=== PATIENT | female | born 1950 | race Caucasian/White ===

== ENCOUNTER 2022-09-26 10:52 | Emergency (ER) | payer BC, SELFPAY ==
[2022-09-26 11:05] VITALS: BP 169/62; PULSE 70; RESP 18; TEMP 36.3; O2SAT 100
--- NOTE | 2022-09-26 11:59 | ED.URI ---
HPI - URI/Sore Throat General Chief Complaint: Upper Respiratory Infection Stated Complaint: Throat Irritation,Cough Time Seen by Provider: 09/26/22 11:49 Source: patient Mode of arrival: ambulatory Limitations: no limitations History of Present Illness HPI Narrative: Patient presents today complaining of a 2 day history of throat irritation with postnasal drainage and productive cough. She currently rates her throat pain 4/10 has been taking Tylenol with some relief. Denies any sick contacts, fever, shortness of breath. Home COVID test negative today. Related Data Home Medications Medication Instructions Recorded Confirmed alprazolam 0.25 mg tablet 0.25 mg PO DAILY 09/26/22 09/26/22 clopidogrel 75 mg tablet 75 mg PO DAILY 09/26/22 09/26/22 ergocalciferol (vitamin D2) 1,250 1,250 mcg PO WEEKLY 09/26/22 09/26/22 mcg (50,000 unit) capsule glimepiride 1 mg tablet 1 mg PO DAILY 09/26/22 09/26/22 lisinopril 20 mg tablet 20 mg PO DAILY 09/26/22 09/26/22 nebivolol 2.5 mg tablet 2.5 mg PO DAILY 09/26/22 09/26/22 omeprazole 20 mg capsule,delayed 20 mg PO DAILY 09/26/22 09/26/22 release rosuvastatin 40 mg tablet 40 mg PO DAILY 09/26/22 09/26/22 Allergies Allergy/AdvReac Type Severity Reaction Status Date / Time metformin Allergy Mild Rash Verified 09/26/22 11:29 Tetanus Vaccines and Toxoid Allergy Mild Rash Verified 09/26/22 11:29 Review of Systems Review of Systems: CONSTITUTIONAL: Denies body aches, fever, chills, or sweats. EYES: Denies visual changes, redness, or discharge. ENT: Denies rhinorrhea, congestion, sore throat, or otalgia.+ postnasal drip, throat irritation CARDIOVASCULAR: Denies chest pain, palpitations, or edema. RESPIRATORY: Denies dyspnea.+ cough GASTROINTESTINAL: Denies abdominal pain, nausea, vomiting, or diarrhea. GENITOURINARY: Denies dysuria or hematuria. SKIN: Denies rash, itching, or wounds. MUSCULOSKELETAL: Denies back pain, joint pain, or myalgia. NEUROLOGIC: Denies headache, numbness, tingling, or weakness. PSYCH: Denies depression or anxiety. [facility] Past Medical History Medical History (Updated 09/26/22 @ 12:11 by Neisha Vasquez, [facility], ) Asthma Diabetes Hypertension Pacemaker Comments At time of signature, I have reviewed and agree with nursing past medical, surgical, social and family history unless otherwise noted. Please see nursing chart for further information. There is no relevant family history pertinent to the presenting complaint Exam Narrative: GENERAL: Well-appearing, well-nourished, and in no acute distress. HEAD: Normocephalic, atraumatic. EYES: EOMI. No redness or drainage. Conjunctivae normal. ENT: Mucous membranes pink and moist. Nares clear. No rhinorrhea. TMs normal bilaterally. Throat normal. Uvula midline. NECK: Normal AROM. Supple. No lymphadenopathy. CHEST: No respiratory distress. Clear to auscultation. HEART: Regular rate and rhythm. No murmur appreciated. Normal peripheral pulses. EXTREMITIES: Normal range of motion. No edema. SKIN: Warm, dry, no rash. Capillary refill normal. Normal skin turgor. NEURO: No focal deficits. Alert and oriented x3. Gait steady. PSYCH: Normal affect. No signs of depression or anxiety. Course Course Level of Care: Express Care Visit Vital Signs Vital signs: Vital Signs Temperature 97.4 F L 09/26/22 11:05 Pulse Rate 70 09/26/22 11:05 Respiratory Rate 18 09/26/22 11:05 Blood Pressure 169/62 H 09/26/22 11:05 Pulse Oximetry 100 09/26/22 11:05 Oxygen Delivery Room Air 09/26/22 11:05 Temperature 97.4 F L 09/26/22 11:05 Pulse Rate 70 09/26/22 11:05 Respiratory Rate 18 09/26/22 11:05 Blood Pressure 169/62 H 09/26/22 11:05 Pulse Oximetry 100 09/26/22 11:05 Oxygen Delivery Room Air 09/26/22 11:05 Reviewed. Pt has been instructed to follow up with her PCP regarding her elevated blood pressure today. MDM - URI/Sore Throat Differential Diagnosis Differential diagnosis
== END 2022-09-26 12:19 | disposition home or self-care (01) ==
PROVIDERS: Emergency Provider Nurse Practitioner; PCP Internal Medicine
DX: J06.9 Acute upper respiratory infection, unspecified (principal); J45.909 Unspecified asthma, uncomplicated; E11.9 Type 2 diabetes mellitus without complications; I10 Essential (primary) hypertension; Z95.0 Presence of cardiac pacemaker
CPT/HCPCS: 87081; 87880; 99213; G0463

== ENCOUNTER 2023-06-08 14:11 | Emergency (ER) | payer BC, MEDICARE, SELFPAY ==
[2023-06-08 14:22] VITALS: BP 139/53; PULSE 65; RESP 16; TEMP 36.8; O2SAT 98
--- NOTE | 2023-06-08 14:37 | ED.URI ---
HPI - URI/Sore Throat General Chief Complaint: Upper Respiratory Infection Stated Complaint: Fatigue,Sore Throat Time Seen by Provider: 06/08/23 14:37 Source: patient Mode of arrival: ambulatory Limitations: no limitations History of Present Illness HPI Narrative: 72-year-old female presents with complaint of sore throat, fatigue, body aches, headache for 3 days. Symptoms started after vacationing and [place]. Reports she is coughing up some phlegm but cough is mild. Denies chest pain and shortness of breath. Reports mild nausea but no vomiting. All systems reviewed and negative except as noted above. Related Data Home Medications Medication Instructions Recorded Confirmed albuterol sulfate 90 mcg/actuation 2 inh inhalation PRN PRN Shortness 09/26/22 06/08/23 aerosol inhaler Of Breath Or Wheezing alprazolam 0.25 mg tablet 0.25 mg PO DAILY 09/26/22 06/08/23 clopidogrel 75 mg tablet 75 mg PO DAILY 09/26/22 06/08/23 ergocalciferol (vitamin D2) 1,250 1,250 mcg PO WEEKLY 09/26/22 06/08/23 mcg (50,000 unit) capsule glimepiride 1 mg tablet 1 mg PO DAILY 09/26/22 06/08/23 lisinopril 20 mg tablet 40 mg PO DAILY 09/26/22 06/08/23 nebivolol 2.5 mg tablet 2.5 mg PO DAILY 09/26/22 06/08/23 omeprazole 20 mg capsule,delayed 20 mg PO DAILY 09/26/22 06/08/23 release rosuvastatin 40 mg tablet 40 mg PO DAILY 09/26/22 06/08/23 Allergies Allergy/AdvReac Type Severity Reaction Status Date / Time metformin AdvReac Mild Rash Verified 06/08/23 14:13 Tetanus Vaccines and Toxoid AdvReac Mild Rash Verified 06/08/23 14:13 Review of Systems Review of Systems: CONSTITUTIONAL: Denies fever, chills, or sweats. reports fatigue. EYES: Denies visual changes, redness, or discharge. ENT: Denies rhinorrhea, congestion . Reports sore throat. Denies otalgia. CARDIOVASCULAR: Denies chest pain, palpitations, or edema. RESPIRATORY: Denies cough or dyspnea. GASTROINTESTINAL: Denies abdominal pain, nausea, vomiting, or diarrhea. GENITOURINARY: Denies dysuria or hematuria. SKIN: Denies rash or itching. MUSCULOSKELETAL: Denies back pain, joint pain . Reports myalgia. NEUROLOGIC: Denies headache, numbness, or weakness. PSYCHIATRIC: Denies anxiety or depression. All other systems reviewed are negative, except as documented in HPI. [facility] Past Medical History Medical History (Updated 06/08/23 @ 14:58 by Sabi Wilson NP) Asthma Diabetes Hypertension Pacemaker Comments At time of signature, agree with nursing past medical, surgical, social and family history. There is no relevant family history pertinent to the presenting complaint. Exam Narrative: GENERAL: This is a well-nourished, well-developed patient, in no apparent distress. HEAD: normocephalic, atraumatic. EYES: PERRL. Sclera clear/white. Vision is grossly intact. EARS: External ears normal, auditory canals clear and without drainage, TMs normal without perforation. Hearing grossly intact. NOSE: External nose normal with no obvious nasal discharge, nares without redness, no rhinorrhea. THROAT: Mucous membranes moist, mild erythema to posterior pharynx. No swelling or tonsillar exudates. NECK: Neck supple, non-tender without lymphadenopathy, masses or thyromegaly. CARDIOVASCULAR: Regular rate and rhythm without murmurs, gallops, or rubs. RESPIRATORY: Clear to auscultation. Breath sounds equal bilaterally. No wheezes, rales, or rhonchi. SKIN: warm, Dry, intact with no suspicious lesions or rash, good texture and turgor. NEURO: awake, alert, and oriented to person, place and time. There were no obvious focal neurologic abnormalities. EXTREMITIES: No joint tenderness, effusion, or edema noted. Course Course Level of Care: Express Care Visit Vital Signs Vital signs: Vital Signs Temperature 36.8 C 06/08/23 14:22 Pulse Rate 65 06/08/23 14:22 Respiratory Rate 16 06/08/23 14:22 Blood Pressure 139/53 L 06/08/23 14:22 Pulse Oximetry 98 06/08/23 14:22
== END 2023-06-08 15:00 | disposition home or self-care (01) ==
PROVIDERS: Emergency Provider Nurse Practitioner Family; PCP Internal Medicine
DX: J02.9 Acute pharyngitis, unspecified (principal); Z20.822 Contact with and (suspected) exposure to COVID-19; J45.909 Unspecified asthma, uncomplicated; E11.9 Type 2 diabetes mellitus without complications; I10 Essential (primary) hypertension; Z95.0 Presence of cardiac pacemaker
CPT/HCPCS: 87081; 87426; 87880; 99213; C9803; G0463

== ENCOUNTER 2023-10-06 09:14 | Emergency (ER) | payer BC, MEDICARE, SELFPAY ==
--- NOTE | 2023-10-06 09:24 | ED.URI ---
HPI - URI/Sore Throat General Chief Complaint: Upper Respiratory Infection Stated Complaint: Cough,Congestion,Sore Throat Source: patient, RN notes reviewed and old records reviewed History of Present Illness HPI Narrative: 72 yo F Presents to urgent care with complaints of a sore throat, runny nose, and coughing up phlegm. Pt states this has been going on for the last couple days. Pt states she has been getting intermittent, midsternal chest pains that would radiate straight to her back and up into her throat for the last week and a half. Pt states she thought these pains were her acid reflux. Pt states 2 nights ago, the pain was worse and lasted about 30 minutes. Pt states that pain radiated down her right arm. Pt states ever since then, she hasn't had any chest pain with exception of a twinge yesterday in her chest. Pt reports feeling nauseated last week. Denies any SOB, dizziness, vomiting, fevers, chills, or other symptoms. 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 Related Data Home Medications Medication Instructions Recorded Confirmed albuterol sulfate 90 mcg/actuation 2 inh inhalation PRN PRN Shortness 09/26/22 10/06/23 aerosol inhaler Of Breath Or Wheezing alprazolam 0.25 mg tablet 0.25 mg PO DAILY 09/26/22 10/06/23 clopidogrel 75 mg tablet 75 mg PO DAILY 09/26/22 10/06/23 ergocalciferol (vitamin D2) 1,250 1,250 mcg PO WEEKLY 09/26/22 10/06/23 mcg (50,000 unit) capsule glimepiride 1 mg tablet 1 mg PO DAILY 09/26/22 10/06/23 lisinopril 20 mg tablet 40 mg PO DAILY 09/26/22 10/06/23 nebivolol 2.5 mg tablet 2.5 mg PO DAILY 09/26/22 10/06/23 omeprazole 20 mg capsule,delayed 20 mg PO DAILY 09/26/22 10/06/23 release rosuvastatin 40 mg tablet 40 mg PO DAILY 09/26/22 10/06/23 famotidine 40 mg tablet 40 mg DIRECTED 10/06/23 10/06/23 Allergies Allergy/AdvReac Type Severity Reaction Status Date / Time metformin AdvReac Mild Rash Verified 06/08/23 14:13 Tetanus Vaccines and Toxoid AdvReac Mild Rash Verified 06/08/23 14:13 Review of Systems Review of Systems: Pertinent positives and pertinent negatives per HPI. [facility] Past Medical History Medical History (Updated 10/06/23 @ 10:38 by Mariajose Hill, [facility]) Asthma Diabetes Hypertension Pacemaker Comments At the time of my signature, I reviewed and agree with the nursing past medical, surgical, social, and family history. There is no relevant family history pertinent to the patient complaint. Exam Narrative: GENERAL: This is a well-nourished, well-developed patient, in no apparent distress. HEAD: normocephalic, atraumatic. EYES: Sclera clear/white. Vision is grossly intact. EARS: External ears normal, auditory canals clear and without drainage, TMs normal without perforation. Hearing grossly intact. NOSE: External nose normal with no obvious nasal discharge, nares without redness, no rhinorrhea. THROAT: Mucous membranes moist, posterior pharynx clear. NECK: Neck supple, non-tender without lymphadenopathy, masses or thyromegaly. CARDIOVASCULAR: Regular rate and rhythm without murmurs, gallops, or rubs. RESPIRATORY: Clear to auscultation. Breath sounds equal bilaterally. No wheezes, rales, or rhonchi. GASTROINTESTINAL: Abdomen soft, non-tender, nondistended. Bowel sounds are active. No hepato-splenomegaly, or palpable masses. No guarding. SKIN: warm, intact with no suspicious lesions or rash, good texture and turgor. NEURO: awake, alert, and oriented to person, place and time. There were no obvious focal neurologic abnormalities. EXTREMITIES: No clubbing, cyanosis, or edema. No joint tenderness, effusion, or edema noted. BACK: Nontender without deformity or crepitus. No flank tenderness. Course Course Level of Care: Express Care Visit Vital Signs Vital signs: Vital Signs Temperature 97
[2023-10-06 09:26] VITALS: BP 164/55; PULSE 64; RESP 16; TEMP 36.4; O2SAT 100
[2023-10-06 09:28] VITALS: BP 164/55; PULSE 64; RESP 16; TEMP 36.4; O2SAT 100
--- NOTE | 2023-10-06 10:08 | ECG_ITS ---
Measurements Intervals [place] Rate: 54 P: 34 [place]: 153 QRS: -23 QRSD: 134 T: 220 QT: 532 QTc: 504 Interpretive Statements ELECTRONIC VENTRICULAR PACEMAKER BASELINE ARTIFACT- I, II, III, AVR, AVL, AVF, V1-V6 NO FURTHER INTERPRETATION IS POSSIBLE ATYPICAL ECG NO PREVIOUS ECG AVAILABLE FOR COMPARISON Electronically Signed On 10-06-2023 11:05:46 FITNESS COORDINATOR by Paulo Melendez D.O.
== END 2023-10-06 10:40 | disposition short-term general hospital (02) ==
PROVIDERS: Emergency Provider Nurse Practitioner Family; PCP Internal Medicine
DX: J02.9 Acute pharyngitis, unspecified (principal); E11.9 Type 2 diabetes mellitus without complications; I10 Essential (primary) hypertension; J45.909 Unspecified asthma, uncomplicated; Z79.899 Other long term (current) drug therapy; Z95.0 Presence of cardiac pacemaker
CPT/HCPCS: 87081; 87880; 93005; 99213; G0463

== ENCOUNTER 2024-09-28 09:55 | Outpatient (CLI) | payer BC, MEDICARE, SELFPAY ==
--- NOTE | ~2024-09-28 | CT_ITS ---
CT of the Abdomen: Indication: Renal mass Technique: 2.5 mm axial scans were obtained through the abdomen prior to and following intravenous a dministration of 100 cc of Omnipaque 350. Dose reduction technique was used on this scan by utilizing automated exposure control and iterative reconstruction technique. The dose-length product (DLP) was 311.37 mGy-cm. Findings: Scans through the lung bases are unremarkable. The liver, spleen, pancreas, adrenals and right kidney are within normal limits. Status post cholecys tectomy. 2.5 cm left lower pole renal cyst present, without significant postcontrast enhancement. The re are atherosclerotic calcifications of the aorta. No lymphadenopathy. Visualized bowel loops are unremarkable. No ascites Impression: 2.5 cm benign left lower pole renal cyst. Reviewed, dictated and finalized at [facility]. [employer]AGE [employer] FAMILY THERAPIST Impression: 2.5 cm benign left lower pole renal cyst.
[2024-09-28 10:28] LABS: Estimated Glomerular Filt Rate > 60
== END 2024-09-28 09:56 | disposition home or self-care (01) ==
PROVIDERS: PCP Internal Medicine; Visit Provider Urology
DX: N28.1 Cyst of kidney, acquired (principal); N28.89 Other specified disorders of kidney and ureter
CPT/HCPCS: 74170; Q9967

== ENCOUNTER 2025-04-19 07:35 | Outpatient (CLI) | payer BC, MEDICARE, SELFPAY ==
--- NOTE | ~2025-04-19 | NM_ITS ---
EXAM: NM gastric emptying study DATE: 04/19/2025 13:09 CDT INDICATION: Early satiety TECHNIQUE: A gastric emptying study was performed using the methodology of Jessica GUADALUPE, et al. J Nucl Med 2007; 48:568-572. The patient was given a meal consisting of 2 scrambled eggs labeled with mCi T c-99m sulfur colloid, 2 slices of toast, two packages of jam, and approximately 120 mL of water. Simu ltaneous anterior and posterior 1-min images of the abdomen were obtained with the patient supine at multiple time points over a total period of 4 hours. The geometric mean of anterior and posterior vie ws was determined, and the percentage retention was calculated for each time point. COMPARISON: None. FINDINGS: Gastric retention of the radiotracer-labeled meal was 46%, 13%, and 3% at the 1-hour, 2-ho ur, and 4-hour time points, respectively. With this technique, apparent rapid gastric emptying is sug gested by <30% gastric retention at 1 hour. Delayed gastric emptying is defined by gastric retention of >90% at 1 hour, >60% retention at 2 hours, or >10% retention at 4 hours. IMPRESSION: 1. Normal gastric emptying. Reviewed, dictated and finalized at location A. IMPRESSION: 1. Normal gastric emptying.
--- OUTSIDE RECORDS SUMMARY | 2025-04-19 07:38 | XMS_ITS | Data Portability ---
Author Organization [facility] Address [address] [place] [address] Care Team Providers Care Data Officer Name Role Phone TOBY VELA Primary Care Provider Assessment Encounter Date Assessment Date Assessment LastModified by Organization Details LastModified Time 07/13/2024 07/13/2024 blood work urinalysis medicines reviewed they be continued she did not tolerate S allergy to a neighbor's she will me in 4 months we will get physical therapy for left-sided sciatica [email or web address] Not available 07/13/2024 21:59:55 08/15/2024 08/15/2024 obtain urine reflex to culture Not available 09/10/2024 21:02:43 09/21/2024 09/21/2024 continue current therapy overall medical problems appear to be stable medicines to treat those problems have been discussed goals of therapies discussed she will see me back in 4 months she will have blood work a week before she comes in [email or web address] Not available 09/21/2024 22:33:48 11/09/2024 11/09/2024 hypertension we will change her lisinopril to 40 mg in the morning and add 20 mg at night she continues to take her pressures at home. Diabetic foot exam with Podiatry other blood work has been reviewed all questions have been answered targets for LDL blood pressure and A1c in the face of diabetes have been discussed. We are trying to obtain the mammogram reports from [facility] Colog[facility] report she needs to get in to see the eye doctor we will get that set up see me in 4 months Not available 11/12/2024 16:18:26 03/15/2025 03/15/2025 Second opinion closer to home does not want to go to [place] just yet CBC CMP lipid T3-T4 TSH cortisol level for her fatigue weight loss and nonspecific complaints follow up with me in 6 weeks [email or web address] Not available 03/25/2025 23:19:23 Plan of Treatment Reminders Order Date Submit Date Provider Last Modified By Organization Details Last Modified Time Details Appointments ANY 15 2024 03:00P M Toby Vela MD Not available Not available Not available Lab unlisted lab - T4, free 2024 025 [facility], [address], [place], [address], 03/16/2025 09:34:59 T3, free, serum or plasma 2024 025 [facility], [address], [place], [address], 03/16/2025 09:35:05 TSH, ultra-sen sitive, serum 2024 025 [facility], [address], [place], [address], 03/16/2025 09:35:03 lipid panel, serum 2024 025 [facility], [address], [place], [address], 03/16/2025 09:34:57 CMP, serum or plasma 2024 025 [facility], [address], [place], [address], 03/16/2025 09:35:00 CBC w/ auto diff 2024 025 [facility], [address], [place], [address], 03/16/2025 09:35:04 cortisol, serum or plasma 2024 025 [facility], [address], [address], [place], [address], 03/16/2025 09:35:01 noninvasi ve colorecta l cancer DNA + occult blood screening , QL, stool 2023 024 [facility] Only), [address], [address], [place], [address], 11/24/2024 07:47:16 HbA1c (hemoglob in A1c), blood 2023 [facility], [facility] [address], [address], [place], [address], 10/12/2024 08:28:39 lipid panel, serum 2023 024 [facility], [facility] [address], [address], [place], [address], 10/12/2024 08:28:36 CMP, serum or plasma 2023 024 [facility], [address], [address], [place], [address], 10/12/2024 08:28:38 CBC w/ auto diff 2023 024 [facility], [address], [address], [place], [address], 10/12/2024 08:28:40 culture, urine 2023 024 [facility], [address], [address], [place], [address], 08/17/2024 06:20:46 urinalysi s complete, reflex culture 2023 024 [facility], [address], [address], [place], [address], 08/16/2024 07:15:10 HbA1c (hemoglob in A1c), blood 2023 024 [facility], [address], [address], [place], [address], 07/14/2024 07:15:31 CBC w/ auto diff 2023 024 [facility], [address], [address], [place], [address], 07/14/2024 07:15:32 CMP, serum or plasma 2023 024 [facility], [address], [address], [place], [address], 07/14/2024 07:15:30 lipid panel, serum 2023 024 [facility], [address], [address], [place], [place], [address], 07/14/2024 07:15:29 urinalysi s, microscop ic 2023 024 [facility], [address], [address], [place], [address], 07/14/2024 07:15:31 albumin/c reatinine , mass ratio, urine 2023 024 [facility], [address], [address], [place], [address], 07/14/2024 07:15:29 Referral podiatris t referral 2023 024 [facility], [address], [address], [place], [address], 12/19/2024 15:47:58 physical therapist referral 2023 024 [facility], [address], [place], [address], 07/19/2024 17:46:23 Procedures None recorded. Surgeries None recorded. Imaging None recorded. Medication Orders lisinopri l 40 mg tablet 2023 024 [id number], [address], [place], [place], [id number], 11/09/2024 15:33:02 Patient TargetsNo targets recorded. Patient Instructions Encounter Date Encounter Id Patient Instructions Last Modified By Organization Details Last Modified Time 03/15/2025 [id number] A healthy lifestyle: care instructions Not available 03/15/2025 21:34:17 Reason for Referral Physical Therapist Referral for Left side sciatica Referring Physician: Toby Vela, Internal Medicine, Encounter Date: 07/13/2024 Recreation Specialist Referral for Type 2 diabetes mellitus without complication Referring Physician: Toby Vela, Internal Medicine, Encounter Date: 11/09/2024 Results Created Date Observation Date Name Description Value Unit Range Abnormal Flag Note LastModifiedBy Organization Detail LastModifiedTime 07/13/2007/14/2024 ALBUM IN/CR EATIN INE RATIO ,URIN E creatinine, urine 109.7 mg/dL notest ab. Not Available [facility] ([facility]) [address], [place], [address], 07/14/2024 07:15:29 07/13/2007/14/2024 ALBUM IN/CR EATIN INE RATIO ,URIN E albumin, urine 4.5 ug/mL notest ab. Not Available [facility] ([facility]) [address], [place], [address], 07/14/2024 07:15:29 07/13/20 24 07/14/2024 ALBUM IN/CR EATIN INE RATIO ,URIN E alb/creat ratio 4 mg/g_ creat 0-29 Jaye l: 0 - 29 Moder ately incre ased: 30 - 300 Sever abbi incre ased: >300 Not Available [facility] ([facility]) [address] [place], [address], 07/14/2024 07:15:29 07/13/20 24 07/14/2024 LIPID PANEL cholesterol, total 175 mg/dL 100-19 9 Not Available [facility] ([facility]) [address] [place], [address], 07/14/2024 07:15:29 07/13/20 24 07/14/2024 LIPID PANEL triglyceride s 140 mg/dL 0-149 Not Available [facility] ([facility]) [address] [place], [address], 07/14/2024 07:15:29 07/13/20 24 07/14/2024 LIPID PANEL HDL cholesterol 65 mg/dL >39 Not Available [facility] ([facility]) [address] [place], [address], 07/14/2024 07:15:29 07/13/20 24 07/14/2024 LIPID PANEL VLDL cholesterol laquita 24 mg/dL 5-40 Not Available [facility] ([facility]) [address] [place], [address], 07/14/2024 07:15:29 07/13/20 24 07/14/2024 LIPID PANEL LDL chol calc ([facility] 86 mg/dL 0-99 Not Available [facility] ([facility]) [address] [place], [address], 07/14/2024 07:15:29 07/13/20 24 07/14/2024 COMP. METAB OLIC PANEL (14) glucose 136 mg/dL 70-99 above high normal Not Available [facility] ([facility]) [address], [place], [address], 07/14/2024 07:15:30 07/13/20 24 07/14/2024 COMP. METAB OLIC PANEL (14) BUN 11 mg/dL 8-27 Not Available [facility] ([facility]) [address] [place], [address], 07/14/2024 07:15:30 07/13/20 24 07/14/2024 COMP. METAB OLIC PANEL (14) creatinine 0.86 mg/dL 0.57-1 .00 Not Available [facility] ([facility]) [address] [place], [address], 07/14/2024 07:15:30 07/13/20 24 07/14/2024 COMP. METAB OLIC PANEL (14) eGFR 71 mL/mi n/1.7 3 >59 Not Available [facility] ([facility]) [address], [place], [address], 07/14/2024 07:15:30 07/13/20 24 07/14/2024 COMP. METAB OLIC PANEL (14) BUN/creatini ne ratio 13 12-28 Not Available [facility] ([facility]) [address] [place], [address], 07/14/2024 07:15:30 07/13/20 24 07/14/2024 COMP. METAB OLIC PANEL (14) sodium 145 mmol/ L 134-14 4 above high normal Not Available [facility] ([facility]) [address] [place], [address], 07/14/2024 07:15:30 07/13/20 24 07/14/2024 COMP. METAB OLIC PANEL (14) potassium 5.3 mmol/ L 3.5-5. 2 above high normal Not Available [facility] ([facility]) [address] [place], [address], 07/14/2024 07:15:30 07/13/20 24 07/14/2024 COMP. METAB OLIC PANEL (14) chloride 102 mmol/ L 96-106 Not Available [facility] ([facility]) [address], [place], [address], 07/14/2024 07:15:30 07/13/20 24 07/14/2024 COMP. METAB OLIC PANEL (14) carbon dioxide, total 26 mmol/ L 20-29 Not Available [facility] ([facility]) [address], [place], [address], 07/14/2024 07:15:30 07/13/20 24 07/14/2024 COMP. METAB OLIC PANEL (14) calcium 10.1 mg/dL 8.7-10 .3 Not Available [facility] ([facility]) [address], [place], [address], 07/14/2024 07:15:30 07/13/20 24 07/14/2024 COMP. METAB OLIC PANEL (14) protein, total 7.0 g/dL 6.0-8. 5 Not Available [facility] ([facility]) [address], [place], [address], 07/14/2024 07:15:30 07/13/20 24 07/14/2024 COMP. METAB OLIC PANEL (14) albumin 4.7 g/dL 3.8-4. 8 Not Available [facility] ([facility]) [address] [facility] [place], [address], 07/14/2024 07:15:30 07/13/20 24 07/14/2024 COMP. METAB OLIC PANEL (14) globulin, total 2.3 g/dL 1.5-4. 5 Not Available [facility] ([facility]) [address] [facility] [place], [address], 07/14/2024 07:15:30 07/13/20 24 07/14/2024 COMP. METAB OLIC PANEL (14) bilirubin, total 0.3 mg/dL 0.0-1. 2 Not Available [facility] ([facility]) [address], [place], [address], 07/14/2024 07:15:30 07/13/20 24 07/14/2024 COMP. METAB OLIC PANEL (14) alkaline phosphatase 64 IU/L 44-121 Not Available [facility] ([facility]) [address], [place], [address], 07/14/2024 07:15:30 07/13/20 24 07/14/2024 COMP. METAB OLIC PANEL (14) AST (SGOT) 15 IU/L 0-40 Not Available [facility] ([facility]) [address], [place], [address], 07/14/2024 07:15:30 07/13/20 24 07/14/2024 COMP. METAB OLIC PANEL (14) ALT (SGPT) 10 IU/L 0-32 Not Available [facility] ([facility]) [address], [place], [address], 07/14/2024 07:15:30 07/13/20 24 07/14/2024 MICRO SCOPI C EXAMI NATIO N WBC NONE SEEN /hpf 0-5 Not Available [facility] ([facility]) [address], [place], [address], 07/14/2024 07:15:31 07/13/20 24 07/14/2024 MICRO SCOPI C EXAMI NATIO N RBC NONE SEEN /hpf 0-2 Not Available [facility] ([facility]) [address], [place], [address], 07/14/2024 07:15:31 07/13/20 24 07/14/2024 MICRO SCOPI C EXAMI NATIO N epithelial cells (non renal) 0-10 /hpf 0-10 Not Available [facility] ([facility]) [address], [place], [address], 07/14/2024 07:15:31 07/13/20 24 07/14/2024 MICRO SCOPI C EXAMI NATIO N casts NONE SEEN /lpf nonese en Not Available [facility] ([facility]) [address], [place], [address], 07/14/2024 07:15:31 07/13/20 24 07/14/2024 MICRO SCOPI C EXAMI NATIO N bacteria NONE SEEN nonese en/few Not Available [facility] ([facility]) [address], [place], [address], 07/14/2024 07:15:31 07/13/20 24 07/14/2024 HEMOG LOBIN A1C hemoglobin A1C 6.9 % 4.8-5. 6 above high normal Predi abete s: 5.7 - 6.4 Diabe daryl: >6.4 Glyce sara contr ol for adult s with diabe daryl: <7.0 Not Available [facility] ([facility]) [address], [place], [address], 07/14/2024 07:15:31 07/13/20 24 07/13/2024 CBC WITH DIFFE RENTI AL/PL ATELE T WBC 5.5 x10e3 /uL 3.4-10 .8 Not Available [facility] ([facility]) [address], [place], [address], 07/14/2024 07:15:32 07/13/20 24 07/13/2024 CBC WITH DIFFE RENTI AL/PL ATELE T RBC 4.21 x10e6 /uL 3.77-5 .28 Not Available [facility] ([facility]) [address], [place], [address], 07/14/2024 07:15:32 07/13/20 24 07/13/2024 CBC WITH DIFFE RENTI AL/PL ATELE T hemoglobin 12.6 g/dL 11.1-1 5.9 Not Available [facility] ([facility]) [address], [place], [address], 07/14/2024 07:15:32 07/13/20 24 07/13/2024 CBC WITH DIFFE RENTI AL/PL ATELE T hematocrit 39.3 % 34.0-4 6.6 Not Available [facility] ([facility]) [address], [place], [address], 07/14/2024 07:15:32 07/13/20 24 07/13/2024 CBC WITH DIFFE RENTI AL/PL ATELE T MCV 93 fL 79-97 Not Available [facility] ([facility]) [address], [place], [address], 07/14/2024 07:15:32 07/13/20 24 07/13/2024 CBC WITH DIFFE RENTI AL/PL ATELE T MCH 29.9 pg 26.6-3 3.0 Not Available [facility] ([facility]) [address], [place], [address], 07/14/2024 07:15:32 07/13/20 24 07/13/2024 CBC WITH DIFFE RENTI AL/PL ATELE T MCHC 32.1 g/dL 31.5-3 5.7 Not Available [facility] ([facility]) [address], [place], [address], 07/14/2024 07:15:32 07/13/20 24 07/13/2024 CBC WITH DIFFE RENTI AL/PL ATELE T RDW 12.3 % 11.7-1 5.4 Not Available [facility] ([facility]) [address] [place], [address], 07/14/2024 07:15:32 07/13/20 24 07/13/2024 CBC WITH DIFFE RENTI AL/PL ATELE T platelets 250 x10e3 /uL 150-45 0 Not Available [facility] ([facility]) [address], [place], [address], 07/14/2024 07:15:32 07/13/20 24 07/13/2024 CBC WITH DIFFE RENTI AL/PL ATELE T neutrophils 55 % notest ab. Not Available [facility] ([facility]) [address], [place], [address], 07/14/2024 07:15:32 07/13/20 24 07/13/2024 CBC WITH DIFFE RENTI AL/PL ATELE T lymphs 35 % notest ab. Not Available [facility] ([facility]) [address], [place], [address], 07/14/2024 07:15:32 07/13/20 24 07/13/2024 CBC WITH DIFFE RENTI AL/PL ATELE T monocytes 7 % notest ab. Not Available [facility] ([facility]) [address], [place], [address], 07/14/2024 07:15:32 07/13/20 24 07/13/2024 CBC WITH DIFFE RENTI AL/PL ATELE T eos 2 % notest ab. Not Available [facility] ([facility]) [address], [place], [address], 07/14/2024 07:15:32 07/13/20 24 07/13/2024 CBC WITH DIFFE RENTI AL/PL ATELE T basos 1 % notest ab. Not Available [facility] ([facility]) [address], [place], [address], 07/14/2024 07:15:32 07/13/20 24 07/13/2024 CBC WITH DIFFE RENTI AL/PL ATELE T neutrophils (absolute) 3.1 x10e3 /uL 1.4-7. 0 Not Available [facility] ([facility]) [address], [place], [address], 07/14/2024 07:15:32 07/13/20 24 07/13/2024 CBC WITH DIFFE RENTI AL/PL ATELE T lymphs (absolute) 1.9 x10e3 /uL 0.7-3. 1 Not Available [facility] ([facility]) [address], [place], [address], 07/14/2024 07:15:32 07/13/20 24 07/13/2024 CBC WITH DIFFE RENTI AL/PL ATELE T monocytes(ab solute) 0.4 x10e3 /uL 0.1-0. 9 Not Available [facility] ([facility]) [address], [place], [address], 07/14/2024 07:15:32 07/13/20 24 07/13/2024 CBC WITH DIFFE RENTI AL/PL ATELE T eos (absolute) 0.1 x10e3 /uL 0.0-0. 4 Not Available [facility] ([facility]) [address], [place], [address], 07/14/2024 07:15:32 07/13/20 24 07/13/2024 CBC WITH DIFFE RENTI AL/PL ATELE T baso (absolute) 0.0 x10e3 /uL 0.0-0. 2 Not Available [facility] ([facility]) [address], [place], [address], 07/14/2024 07:15:32 07/13/20 24 07/13/2024 CBC WITH DIFFE RENTI AL/PL ATELE T immature granulocytes 0 % notest ab. Not Available [facility] ([facility]) [address], [place], [address], 07/14/2024 07:15:32 07/13/20 24 07/13/2024 CBC WITH DIFFE RENTI AL/PL ATELE T immature grans (abs) 0.0 x10e3 /uL 0.0-0. 1 Not Available [facility] ([facility]) [address], [place], [address], 07/14/2024 07:15:32 08/15/2008/16/2024 MICRO SCOPI C EXAMI NATIO N WBC None seen /hpf 0-5 Not Available [facility] ([facility]) [address], [place], [address], 08/16/2024 07:15:10 08/15/2008/16/2024 MICRO SCOPI C EXAMI NATIO N RBC 0-2 /hpf 0-2 Not Available [facility] ([facility]) [address], [place], [address], 08/16/2024 07:15:10 08/15/2008/16/2024 MICRO SCOPI C EXAMI NATIO N epithelial cells (non renal) 0-10 /hpf 0-10 Not Available [facility] ([facility]) [address], [place], [address], 08/16/2024 07:15:10 08/15/2008/16/2024 MICRO SCOPI C EXAMI NATIO N casts None seen /lpf nonese en Not Available [facility] ([facility]) [address], [place], [address], 08/16/2024 07:15:10 08/15/2008/16/2024 MICRO SCOPI C EXAMI NATIO N bacteria None seen nonese en/few Not Available [facility] ([facility]) [address], [place], [address], 08/16/2024 07:15:10 08/15/2008/16/2024 UA/M W/RFL X CULTU RE, ROUTI NE specific gravity 1.009 1.005- 1.030 Not Available [facility] ([facility]) [address], [place], [address], 08/16/2024 07:15:10 08/15/20 24 08/16/2024 UA/M W/RFL X CULTU RE, ROUTI NE pH 6.0 5.0-7. 5 Not Available [facility] ([facility]) [address], [place], [address], 08/16/2024 07:15:10 08/15/2008/16/2024 UA/M W/RFL X CULTU RE, ROUTI NE urine-color YELLOW yellow Not Available [facility] ([facility]) [address], [place], [address], 08/16/2024 07:15:10 08/15/2008/16/2024 UA/M W/RFL X CULTU RE, ROUTI NE appearance CLEAR clear Not Available [facility] ([facility]) [address], [place], [address], 08/16/2024 07:15:10 08/15/20 24 08/16/2024 UA/M W/RFL X CULTU RE, ROUTI NE WBC esterase NEGATI VE negati ve Not Available [facility] ([facility]) [address], [place], [address], 08/16/2024 07:15:10 08/15/20 24 08/16/2024 UA/M W/RFL X CULTU RE, ROUTI NE protein NEGATI VE negati ve/tra ce Not Available [facility] ([facility]) [address] [place], [address], 08/16/2024 07:15:10 08/15/20 24 08/16/2024 UA/M W/RFL X CULTU RE, ROUTI NE glucose NEGATI VE negati ve Not Available [facility] ([facility]) [address] [place], [address], 08/16/2024 07:15:10 08/15/20 24 08/16/2024 UA/M W/RFL X CULTU RE, ROUTI NE ketones NEGATI VE negati ve Not Available [facility] ([facility]) [address], [place], [address], 08/16/2024 07:15:10 08/15/20 24 08/16/2024 UA/M W/RFL X CULTU RE, ROUTI NE occult blood NEGATI VE negati ve Not Available [facility] ([facility]) [address], [place], [address], 08/16/2024 07:15:10 08/15/20 24 08/16/2024 UA/M W/RFL X CULTU RE, ROUTI NE bilirubin NEGATI VE negati ve Not Available [facility] ([facility]) [address] [facility], [place], [address], 08/16/2024 07:15:10 08/15/20 24 08/16/2024 UA/M W/RFL X CULTU RE, ROUTI NE urobilinogen ,semi-qn 0.2 mg/dL 0.2-1. 0 Not Available [facility] ([facility]) [address], [place], [address], 08/16/2024 07:15:10 08/15/20 24 08/16/2024 UA/M W/RFL X CULTU RE, ROUTI NE nitrite, urine NEGATI VE negati ve Not Available [facility] ([facility]) [address] [place], [address], 08/16/2024 07:15:10 08/15/20 24 08/16/2024 UA/M W/RFL X CULTU RE, ROUTI NE microscopic examination COMMEN T Micro scopi c follo ws if indic ated. Not Available [facility] ([facility]) [address] [facility], [place], [address], 08/16/2024 07:15:10 08/15/20 24 08/16/2024 UA/M W/RFL X CULTU RE, ROUTI NE microscopic examination SEE BELOW: Micro scopi c was indic ated and was perfo rmed. Not Available [facility] ([facility]) [address] [place], [address], 08/16/2024 07:15:10 08/15/20 24 08/16/2024 UA/M W/RFL X CULTU RE, ROUTI NE urinalysis reflex COMMEN T This speci men will not refle x to a Urine Cultu re. Not Available [facility] ([facility]) [address] [place], [address], 08/16/2024 07:15:10 08/15/20 24 08/17/2024 URINE CULTU RE, ROUTI NE urine culture, routine FINAL REPORT Not Available [facility] ([facility]) [address] [place], [address], 08/17/2024 06:20:46 08/15/20 24 08/17/2024 URINE CULTU RE, ROUTI NE result 1 COMMEN T Mixed uroge nital blayne Less than 10,00 0 colon ies/m L Not Available [facility] ([facility]) [address] [place], [address], 08/17/2024 06:20:46 10/11/20 24 10/12/2024 LIPID PANEL cholesterol, total 143 mg/dL 100-19 9 Not Available [facility] ([facility]) [address] [place], [address], 10/12/2024 08:28:36 10/11/20 24 10/12/2024 LIPID PANEL triglyceride s 99 mg/dL 0-149 Not Available [facility] ([facility]) [address] [place], [address], 10/12/2024 08:28:36 10/11/20 24 10/12/2024 LIPID PANEL HDL cholesterol 62 mg/dL >39 Not Available [facility] ([facility]) [address], [place], [address], 10/12/2024 08:28:36 10/11/20 24 10/12/2024 LIPID PANEL VLDL cholesterol laquita 18 mg/dL 5-40 Not Available [facility] ([facility]) [address] [place], [address], 10/12/2024 08:28:36 10/11/20 24 10/12/2024 LIPID PANEL LDL chol calc ([facility]) 63 mg/dL 0-99 Not Available [facility] ([facility]) [address] [place], [address], 10/12/2024 08:28:36 10/11/20 24 10/12/2024 COMP. METAB OLIC PANEL (14) glucose 117 mg/dL 70-99 above high normal Not Available [facility] ([facility]) [address] [place], [address], 10/12/2024 08:28:38 10/11/20 24 10/12/2024 COMP. METAB OLIC PANEL (14) BUN 18 mg/dL 8-27 Not Available [facility] ([facility]) [address] [place], [address], 10/12/2024 08:28:38 10/11/20 24 10/12/2024 COMP. METAB OLIC PANEL (14) creatinine 0.86 mg/dL 0.57-1 .00 Not Available [facility] ([facility]) [address] [place], [address], 10/12/2024 08:28:38 10/11/20 24 10/12/2024 COMP. METAB OLIC PANEL (14) eGFR 71 mL/mi n/1.7 3 >59 Not Available [facility] ([facility]) [address] [facility], [place], [address], 10/12/2024 08:28:38 10/11/20 24 10/12/2024 COMP. METAB OLIC PANEL (14) BUN/creatini ne ratio 21 12-28 Not Available [facility] ([facility]) [address] [facility], [place], [address], 10/12/2024 08:28:38 10/11/20 24 10/12/2024 COMP. METAB OLIC PANEL (14) sodium 141 mmol/ L 134-14 4 Not Available [facility] ([facility]) [address] [facility], [place], [address], 10/12/2024 08:28:38 10/11/20 24 10/12/2024 COMP. METAB OLIC PANEL (14) potassium 5.1 mmol/ L 3.5-5. 2 Not Available [facility] ([facility]) [address] [facility], [place], [address], 10/12/2024 08:28:38 10/11/20 24 10/12/2024 COMP. METAB OLIC PANEL (14) chloride 104 mmol/ L 96-106 Not Available [facility] ([facility]) [address] [facility], [place], [address], 10/12/2024 08:28:38 10/11/20 24 10/12/2024 COMP. METAB OLIC PANEL (14) carbon dioxide, total 27 mmol/ L 20-29 Not Available [facility] ([facility]) [address] [facility], [place], [address], 10/12/2024 08:28:38 10/11/20 24 10/12/2024 COMP. METAB OLIC PANEL (14) calcium 9.4 mg/dL 8.7-10 .3 Not Available [facility] ([facility]) [address] [facility], [place], [address], 10/12/2024 08:28:38 10/11/20 24 10/12/2024 COMP. METAB OLIC PANEL (14) protein, total 6.6 g/dL 6.0-8. 5 Not Available [facility] ([facility]) [address] [facility], [place], [address], 10/12/2024 08:28:38 10/11/20 24 10/12/2024 COMP. METAB OLIC PANEL (14) albumin 4.6 g/dL 3.8-4. 8 Not Available [facility] ([facility]) [address] [facility], [place], [address], 10/12/2024 08:28:38 10/11/20 24 10/12/2024 COMP. METAB OLIC PANEL (14) globulin, total 2.0 g/dL 1.5-4. 5 Not Available [facility] ([facility]) [address] [facility], [place], [address], 10/12/2024 08:28:38 10/11/20 24 10/12/2024 COMP. METAB OLIC PANEL (14) bilirubin, total 0.4 mg/dL 0.0-1. 2 Not Available [facility] ([facility]) [address] [facility], [place], [address], 10/12/2024 08:28:38 10/11/20 24 10/12/2024 COMP. METAB OLIC PANEL (14) alkaline phosphatase 67 IU/L 44-121 Not Available [facility] ([facility]) [address] [facility], [place], [address], 10/12/2024 08:28:38 10/11/20 24 10/12/2024 COMP. METAB OLIC PANEL (14) AST (SGOT) 15 IU/L 0-40 Not Available [facility] ([facility]) [address] [facility], [place], [address], 10/12/2024 08:28:38 10/11/20 10/12/2024 COMP. METAB OLIC PANEL (14) ALT (SGPT) 9 IU/L 0-32 Not Available [facility] ([facility]) [address] [place], [address], 10/12/2024 08:28:38 10/11/20 24 10/12/2024 HEMOG LOBIN A1C hemoglobin A1C 6.7 % 4.8-5. 6 above high normal Predi abete s: 5.7 - 6.4 Diabe daryl: >6.4 Glyce sara contr ol for adult s with diabe daryl: <7.0 Not Available [facility] ([facility]) [address] [facility], [place], [address], 10/12/2024 08:28:39 10/11/20 24 10/12/2024 CBC WITH DIFFE RENTI AL/PL ATELE T WBC 6.9 x10e3 /uL 3.4-10 .8 Eff ectiv e Decem zulma 2023 profi jasbir 33000 5 WBC will be made* * non-o rdera ble as a stand -christelle e order code. Not Available [facility] ([facility]) [address] [facility], [place], [address], 10/12/2024 08:28:40 10/11/20 24 10/12/2024 CBC WITH DIFFE RENTI AL/PL ATELE T RBC 3.97 x10e6 /uL 3.77-5 .28 Not Available [facility] ([facility]) [address] [place], [address], 10/12/2024 08:28:40 10/11/20 24 10/12/2024 CBC WITH DIFFE RENTI AL/PL ATELE T hemoglobin 11.9 g/dL 11.1-1 5.9 Not Available [facility] ([facility]) [address] [place], [address], 10/12/2024 08:28:40 10/11/20 24 10/12/2024 CBC WITH DIFFE RENTI AL/PL ATELE T hematocrit 36.6 % 34.0-4 6.6 Not Available [facility] ([facility]) [address] [facility], [place], [address], 10/12/2024 08:28:40 10/11/20 24 10/12/2024 CBC WITH DIFFE RENTI AL/PL ATELE T MCV 92 fL 79-97 Not Available [facility] ([facility]) [address] [facility], [place], [address], 10/12/2024 08:28:40 10/11/20 24 10/12/2024 CBC WITH DIFFE RENTI AL/PL ATELE T MCH 30.0 pg 26.6-3 3.0 Not Available [facility] ([facility]) [address] [facility], [place], [address], 10/12/2024 08:28:40 10/11/20 24 10/12/2024 CBC WITH DIFFE RENTI AL/PL ATELE T MCHC 32.5 g/dL 31.5-3 5.7 Not Available [facility] ([facility]) [address] [facility], [place], [address], 10/12/2024 08:28:40 10/11/20 24 10/12/2024 CBC WITH DIFFE RENTI AL/PL ATELE T RDW 12.3 % 11.7-1 5.4 Not Available [facility] ([facility]) [address] [place], [address], 10/12/2024 08:28:40 10/11/20 24 10/12/2024 CBC WITH DIFFE RENTI AL/PL ATELE T platelets 285 x10e3 /uL 150-45 0 Not Available [facility] ([facility]) [address] [place], [address], 10/12/2024 08:28:40 10/11/20 24 10/12/2024 CBC WITH DIFFE RENTI AL/PL ATELE T neutrophils 58 % notest ab. Not Available [facility] ([facility]) [address] [facility], [place], [address], 10/12/2024 08:28:40 10/11/20 24 10/12/2024 CBC WITH DIFFE RENTI AL/PL ATELE T lymphs 33 % notest ab. Not Available [facility] ([facility]) [address] [facility], [place], [address], 10/12/2024 08:28:40 10/11/20 24 10/12/2024 CBC WITH DIFFE RENTI AL/PL ATELE T monocytes 7 % notest ab. Not Available [facility] ([facility]) [address] [facility], [place], [address], 10/12/2024 08:28:40 10/11/20 24 10/12/2024 CBC WITH DIFFE RENTI AL/PL ATELE T eos 1 % notest ab. Not Available [facility] ([facility]) [address] [facility], [place], [address], 10/12/2024 08:28:40 10/11/20 24 10/12/2024 CBC WITH DIFFE RENTI AL/PL ATELE T basos 1 % notest ab. Not Available [facility] ([facility]) [address] [facility], [place], [address], 10/12/2024 08:28:40 10/11/20 24 10/12/2024 CBC WITH DIFFE RENTI AL/PL ATELE T neutrophils (absolute) 4.0 x10e3 /uL 1.4-7. 0 Not Available [facility] ([facility]) [address] [facility], [place], [address], 10/12/2024 08:28:40 10/11/20 24 10/12/2024 CBC WITH DIFFE RENTI AL/PL ATELE T lymphs (absolute) 2.3 x10e3 /uL 0.7-3. 1 Not Available [facility] ([facility]) [address] [facility], [place], [address], 10/12/2024 08:28:40 10/11/20 24 10/12/2024 CBC WITH DIFFE RENTI AL/PL ATELE T monocytes(ab solute) 0.5 x10e3 /uL 0.1-0. 9 Not Available [facility] ([facility]) [address] [facility], [place], [address], 10/12/2024 08:28:40 10/11/20 24 10/12/2024 CBC WITH DIFFE RENTI AL/PL ATELE T eos (absolute) 0.1 x10e3 /uL 0.0-0. 4 Not Available [facility] ([facility]) [address] [facility], [place], [address], 10/12/2024 08:28:40 10/11/20 24 10/12/2024 CBC WITH DIFFE RENTI AL/PL ATELE T baso (absolute) 0.1 x10e3 /uL 0.0-0. 2 Not Available [facility] ([facility]) [address] [facility], [place], [address], 10/12/2024 08:28:40 10/11/20 24 10/12/2024 CBC WITH DIFFE RENTI AL/PL ATELE T immature granulocytes 0 % notest ab. Not Available [facility] ([facility]) [address] [facility], [place], [address], 10/12/2024 08:28:40 10/11/20 24 10/12/2024 CBC WITH DIFFE RENTI AL/PL ATELE T immature grans (abs) 0.0 x10e3 /uL 0.0-0. 1 Not Available [facility] ([facility]) [address] [facility], [place], [address], 10/12/2024 08:28:40 12/27/11/17/2024 COLOG UARD cologuard result reportable NEGATI VE negati ve normal NEGAT GREGORY TEST RESUL T. A negat gregory Colog uard resul t indic ates a low likel ihood that a color ectal cance r (CRC) or advan kenyatta adeno ma (alina omato us polyp s with more advan kenyatta pre-m align ant featu res) is prese nt. The [facility] e that a perso n with a negat gregory Colog uard test has a color ectal cance r is less than 1 in 1500 (nega tive predi ctive value >99.9 %) or has an advan kenyatta adeno ma is less than 5.3% (nega tive predi ctive value 94.7% ). These data are based on a prosp ectiv e cross -sect ional study of 00 0 indiv idual s at [place] risk for color ectal cance r who were scree james with both Colog uard and colon oscop y. (Jon Montelongo et al, N Engl J Med 2014; 370(1 4):12 86-12 97) The jaye l value (refe rence range ) for this assay is negat gregory. COLOG UARD RE-SC REENI NG RECOM MENDA TION: Perio dic color ectal cance r scree rosey is an impor tant part of preve ntive healt hcare for asymp tomat ic indiv [place]ual s at [place] risk for color ectal cance r. Follo wing a negat gregory Colog uard resul t, the Ameri can Cance r Socie ty and U.S. Multi -Soci ety Task Force scree rosey guide lines recom mend a Colog uard re-sc reeni ng inter yoli of 3 years . Refer ences : Ameri can Cance r Socie ty Guide line for Color ectal Cance r Scree rosey: https ://lexi w.can cer.o rg/ca ncer/ colon -rect al-ca ncer/ detec tion- diagn osis- stagi ng/ac s-rec ommen datio ns.ht ml.; Matthew EUCEDA, Ivana MENCHACA, Domin beka JK, Color ectal Cance r Scree rosey: Recom menda tions for Physi cians and Patie nts from the U.S. Multi -Soci ety Task Force on Color ectal Cance r Morro ramosJaky julian y 2017; 112:1 016-1 030. TEST DESCR IPTIO N: [place] site algor ithmi c sera sis of stool DNA-b iomar kers with hemog lobin immun oassa y. Quant itati ve value s of indiv idual bioma rkers are not repor table and are not assoc iated with indiv idual bioma rker resul t refer ence range s. Colog uard is inten ded for color ectal cance r scree rosey of adult s of eithe r sex, 45 years or older , who are at [facility] for color ectal cance r (CRC) . Colog uard has been appro otoniel for use by the U.[place]. FDA. The perfo rmanc e of Colog uard was estab lishe d in a cross secti onal study of [facility] adult s aged 50-84 . Colog uard perfo rmanc e in patie nts ages 45 to 49 years was estim ated by brandon-g james sera sis of near- age group s. Colon oscop ies perfo rmed for a posit gregory resul t may find as the most clini tristian signi fican t lesio n: color ectal cance r [4.0% ], advan kenyatta adeno ma (incl uding sessi le chang ann polyp s great er than or equal to 1cm diame ter) [20%] or non- advan kenyatta adeno ma [31%] ; or no color ectal neopl shanon [45%] . These estim ates are deriv ed from a prosp ectiv e cross -sect ional scree rosey study of 10,00 0 indiv idual s at [facility] risk for color ectal cance r who were scree james with both Colog uard and colon oscop y. (Jon Montelongo et al, N Engl J Med 2014; 370(1 4):12 86-12 97.) Colog uard may produ ce a false negat gregory or false posit gregory resul t (no color ectal cance r or preca ncero us polyp prese nt at colon oscop y follo w up). A negat gregory Colog uard test resul t does not guara ntee the absen ce of CRC or advan kenyatta adeno ma (pre- cance r). The curre nt Colog uard scree rosey inter yoli is every 3 years . (Amer ican Cance r Socie ty and U.S. Multi -Soci ety Task Force ). Colog uard perfo rmanc e data in a 10,00 0 patie nt pivot al study using colon oscop y as the refer ence metho d can be acces sed at the follo wing locat ion: www.e xactl abs.c om/re sulnelsy . Addit ional descr iptio n of the Colog uard test proce ss, warni ngs and preca ution s can be found at www.c ologu polo.c om. Not Available [facility] (Cologuard Orders Only) [address], [place], [address], 11/24/2024 07:47:16 03/15/2003/16/2025 LIPID PANEL cholesterol, total 125 mg/dL 100-19 9 Not Available [facility] ([facility]) [address] [facility], [place], [address], 03/16/2025 09:34:56 03/15/2003/16/2025 LIPID PANEL triglyceride s 87 mg/dL 0-149 Not Available [facility] ([facility]) [address] [facility], [place], [address], 03/16/2025 09:34:56 03/15/2003/16/2025 LIPID PANEL HDL cholesterol 56 mg/dL >39 Not Available [facility] ([facility]) [address] [facility], [place], [address], 03/16/2025 09:34:56 03/15/20 25 03/16/2025 LIPID PANEL VLDL cholesterol laquita 17 mg/dL 5-40 Not Available [facility] ([facility]) [address] [place], [address], 03/16/2025 09:34:56 03/15/2003/16/2025 LIPID PANEL LDL chol calc ([facility]) 52 mg/dL 0-99 Not Available [facility] ([facility]) [address] [place], [address], 03/16/2025 09:34:56 03/15/2003/16/2025 T4, FREE T4,free(dire ct) 1.04 NG/dL 0.82-1 .77 Not Available [facility] ([facility]) [address] [place], [address], 03/16/2025 09:34:59 03/15/2003/16/2025 COMP. METAB OLIC PANEL (14) glucose 94 mg/dL 70-99 Not Available [facility] ([facility]) [address] [place], [address], 03/16/2025 09:35:00 03/15/20 25 03/16/2025 COMP. METAB OLIC PANEL (14) BUN 13 mg/dL 8-27 Not Available [facility] ([facility]) [address] [place], [address], 03/16/2025 09:35:00 03/15/2003/16/2025 COMP. METAB OLIC PANEL (14) creatinine 0.80 mg/dL 0.57-1 .00 Not Available [facility] ([facility]) [address] [place], [address], 03/16/2025 09:35:00 03/15/20 25 03/16/2025 COMP. METAB OLIC PANEL (14) eGFR 77 mL/mi n/1.7 3 >59 Not Available [facility] ([facility]) [address] [place], [address], 03/16/2025 09:35:00 03/15/2003/16/2025 COMP. METAB OLIC PANEL (14) BUN/creatini ne ratio 16 12-28 Not Available [facility] ([facility]) [address] [facility] [place], [address], 03/16/2025 09:35:00 03/15/2003/16/2025 COMP. METAB OLIC PANEL (14) sodium 145 mmol/ L 134-14 4 above high normal Not Available [facility] ([facility]) [address] [facility] [place], [address], 03/16/2025 09:35:00 03/15/2003/16/2025 COMP. METAB OLIC PANEL (14) potassium 4.7 mmol/ L 3.5-5. 2 Not Available [facility] ([facility]) [address] [facility], [place], [address], 03/16/2025 09:35:00 03/15/2003/16/2025 COMP. METAB OLIC PANEL (14) chloride 106 mmol/ L 96-106 Not Available [facility] ([facility]) [address] [facility] [place], [address], 03/16/2025 09:35:00 03/15/2003/16/2025 COMP. METAB OLIC PANEL (14) carbon dioxide, total 23 mmol/ L 20-29 Not Available [facility] ([facility]) [address] [facility] [place], [address], 03/16/2025 09:35:00 03/15/2003/16/2025 COMP. METAB OLIC PANEL (14) calcium 9.9 mg/dL 8.7-10 .3 Not Available [facility] ([facility]) [address] [facility] [place], [address], 03/16/2025 09:35:00 03/15/20 25 03/16/2025 COMP. METAB OLIC PANEL (14) protein, total 6.5 g/dL 6.0-8. 5 Not Available [facility] ([facility]) [address] [facility], [place], [address], 03/16/2025 09:35:00 03/15/20 25 03/16/2025 COMP. METAB OLIC PANEL (14) albumin 4.5 g/dL 3.8-4. 8 Not Available [facility] ([facility]) [address] [facility], [place], [address], 03/16/2025 09:35:00 03/15/2003/16/2025 COMP. METAB OLIC PANEL (14) globulin, total 2.0 g/dL 1.5-4. 5 Not Available [facility] ([facility]) [address] [facility], [place], [address], 03/16/2025 09:35:00 03/15/20 25 03/16/2025 COMP. METAB OLIC PANEL (14) bilirubin, total 0.5 mg/dL 0.0-1. 2 Not Available [facility] ([facility]) [address] [facility], [place], [address], 03/16/2025 09:35:00 03/15/20 25 03/16/2025 COMP. METAB OLIC PANEL (14) alkaline phosphatase 66 IU/L 44-121 Not Available [facility] ([facility]) [address] [facility], [place], [address], 03/16/2025 09:35:00 03/15/2003/16/2025 COMP. METAB OLIC PANEL (14) AST (SGOT) 17 IU/L 0-40 Not Available [facility] ([facility]) [address] [place], [address], 03/16/2025 09:35:00 03/15/2003/16/2025 COMP. METAB OLIC PANEL (14) ALT (SGPT) 11 IU/L 0-32 Not Available [facility] ([facility]) [address] [place], [address], 03/16/2025 09:35:00 03/15/2003/16/2025 CORTI ROSSY cortisol 5.9 ug/dL 6.2-19 .4 below low normal Pleas e Note: The refer ence inter yoli and abiel ing for this test is for an AM colle ction . If this is a PM colle ction pleas e use: Corti rossy PM: 2.3-1 1.9 Not Available [facility] ([facility]) [address] [place], [address], 03/16/2025 09:35:01 03/15/2003/16/2025 TSH TSH 1.030 uIU/m L 0.450- 4.500 Not Available [facility] ([facility]) [address] [place], [address], 03/16/2025 09:35:03 03/15/2003/16/2025 CBC WITH DIFFE RENTI AL/PL ATELE T WBC 5.7 x10e3 /uL 3.4-10 .8 Not Available [facility] ([facility]) [address] [place], [address], 03/16/2025 09:35:04 03/15/2003/16/2025 CBC WITH DIFFE RENTI AL/PL ATELE T RBC 3.94 x10e6 /uL 3.77-5 .28 Not Available [facility] ([facility]) [address] [place], [address], 03/16/2025 09:35:04 03/15/2003/16/2025 CBC WITH DIFFE RENTI AL/PL ATELE T hemoglobin 11.8 g/dL 11.1-1 5.9 Not Available [facility] ([facility]) [address] [place], [address], 03/16/2025 09:35:04 03/15/2003/16/2025 CBC WITH DIFFE RENTI AL/PL ATELE T hematocrit 36.6 % 34.0-4 6.6 Not Available [facility] ([facility]) [address] [place], [address], 03/16/2025 09:35:04 03/15/2003/16/2025 CBC WITH DIFFE RENTI AL/PL ATELE T MCV 93 fL 79-97 Not Available [facility] ([facility]) [address] [place], [address], 03/16/2025 09:35:04 03/15/2003/16/2025 CBC WITH DIFFE RENTI AL/PL ATELE T MCH 29.9 pg 26.6-3 3.0 Not Available [facility] ([facility]) [address] [facility], [place], [address], 03/16/2025 09:35:04 03/15/2003/16/2025 CBC WITH DIFFE RENTI AL/PL ATELE T MCHC 32.2 g/dL 31.5-3 5.7 Not Available [facility] ([facility]) [address] [place], [address], 03/16/2025 09:35:04 03/15/2003/16/2025 CBC WITH DIFFE RENTI AL/PL ATELE T RDW 12.6 % 11.7-1 5.4 Not Available [facility] ([facility]) [address] [place], [address], 03/16/2025 09:35:04 03/15/2003/16/2025 CBC WITH DIFFE RENTI AL/PL ATELE T platelets 272 x10e3 /uL 150-45 0 Not Available [facility] ([facility]) [address] [place], [address], 03/16/2025 09:35:04 03/15/2003/16/2025 CBC WITH DIFFE RENTI AL/PL ATELE T neutrophils 51 % notest ab. Not Available [facility] ([facility]) [address] [facility], [place], [address], 03/16/2025 09:35:04 03/15/2003/16/2025 CBC WITH DIFFE RENTI AL/PL ATELE T lymphs 41 % notest ab. Not Available [facility] ([facility]) [address] [facility], [place], [address], 03/16/2025 09:35:04 03/15/2003/16/2025 CBC WITH DIFFE RENTI AL/PL ATELE T monocytes 6 % notest ab. Not Available [facility] ([facility]) [address] [facility], [place], [address], 03/16/2025 09:35:04 03/15/2003/16/2025 CBC WITH DIFFE RENTI AL/PL ATELE T eos 1 % notest ab. Not Available [facility] ([facility]) [address] [facility], [place], [address], 03/16/2025 09:35:04 03/15/2003/16/2025 CBC WITH DIFFE RENTI AL/PL ATELE T basos 1 % notest ab. Not Available [facility] ([facility]) [address] [facility], [place], [address], 03/16/2025 09:35:04 03/15/2003/16/2025 CBC WITH DIFFE RENTI AL/PL ATELE T neutrophils (absolute) 2.9 x10e3 /uL 1.4-7. 0 Not Available [facility] ([facility]) [address] [facility], [place], [address], 03/16/2025 09:35:04 03/15/2003/16/2025 CBC WITH DIFFE RENTI AL/PL ATELE T lymphs (absolute) 2.4 x10e3 /uL 0.7-3. 1 Not Available [facility] ([facility]) [address] [place], [address], 03/16/2025 09:35:04 03/15/2003/16/2025 CBC WITH DIFFE RENTI AL/PL ATELE T monocytes(ab solute) 0.4 x10e3 /uL 0.1-0. 9 Not Available [facility] ([facility]) [address] [facility], [place], [address], 03/16/2025 09:35:04 03/15/2003/16/2025 CBC WITH DIFFE RENTI AL/PL ATELE T eos (absolute) 0.1 x10e3 /uL 0.0-0. 4 Not Available [facility] ([facility]) [address] [place], [address], 03/16/2025 09:35:04 03/15/2003/16/2025 CBC WITH DIFFE RENTI AL/PL ATELE T baso (absolute) 0.0 x10e3 /uL 0.0-0. 2 Not Available [facility] ([facility]) [address] [place], [address], 03/16/2025 09:35:04 03/15/2003/16/2025 CBC WITH DIFFE RENTI AL/PL ATELE T immature granulocytes 0 % notest ab. Not Available [facility] ([facility]) [address] [place], [address], 03/16/2025 09:35:04 03/15/2003/16/2025 CBC WITH DIFFE RENTI AL/PL ATELE T immature grans (abs) 0.0 x10e3 /uL 0.0-0. 1 Not Available [facility] ([facility]) [address] [place], [address], 03/16/2025 09:35:04 03/15/20 25 03/16/2025 TRIIO DOTHY JOHN E (T3), FREE triiodothyro nine (T3), free 3.2 pg/mL 2.0-4. 4 Not Available [facility] ([facility]) [address] [facility], [place], [address], 03/16/2025 09:35:05 09/28/20 24 09/28/2024 CT, abdom en, w/wo contr ast No observ ation record ed. [address], [place], [address], 10/02/2024 21:24:42 Result Notes None recorded. Problems Name Problem SNOMED Code Status Onset Date Resolution Date Notes Provider Name and Address Organization Details Recorded Time Essential hypertension 13131428 Active 2023 Corbin García [place] null, [place] [facility] 4 12:43:55 Type 2 diabetes mellitus without complication 194212656 Active 2023 Corbin García [place], [place] [facility] 12:43:56 Anxiety 52116837 Active 2023 Corbin García [place] [facility] 12:43:57 Hyperlipidemia 16028837 Active 2023 Corbin García [place] [facility] 12:43:58 Anemia 266026658 Active 2023 Corbin García [place] [facility] 4 12:44:00 Gastroesophage al reflux disease without esophagitis 776794727 Active 2023 Corbin García [place], [place] [facility] 4 12:44:00 Constipation 15557358 Active 2023 Toby Vela MD Attn: Hans julian,[address] [facility], [place], [place], [address] , [place] [facility] 4 12:59:42 Chronic diastolic heart failure 733714718 Active 2023 Toby Vela MD Attn: Hans julian,[address], [place], [address], [place] [facility] 4 09:58:59 Weight decreased 398547917 Active 2024 JOSE L [place], [place] [facility] 5 11:19:57 Problem Notes None recorded. Procedures Surgical History Date Name Laterality Status Provider Name and Address Organization Details Recorded Time Defibrillator completed JOSE L Fisher - [facility] 02/21/2024 12:23:17 Pacemaker completed JOSE L Fisher - [facility] 02/21/2024 12:23:23 Tonsillectomy completed Irma Garza [place] - [facility] 02/21/2024 12:23:28 Gastrointestinal Surgery completed Irma Garza [place] [facility] 02/21/2024 12:23:34 Dilation and Curettage completed Irma Garza MA [place] [facility] 02/21/2024 12:23:39 Total hysterectomy completed Pino Garza MA [place] - [facility] 02/21/2024 12:23:44 Imaging Results None recorded. Procedure Notes None recorded. Medical Equipment None Reported. Allergies Allergen ID Allergen Name Allergen Category Reaction Reaction Severity Criticality Documentation Date Start Date Code Code System Note Provider Name and Address Organization Details Recorded Time 911425 tetanus immune globulin, human medicatio n edema rash Not available Not available Not available 02/21/2024 50810 RxNorm JOSE L [place], [place] [facility] 4 12:22:45 924710 Jardiance medicatio n nausea Not available Not available 03/15/2025 86539 59 RxNorm JOSE L Ramsey, [place] [facility] 5 10:41:08 070598 latex environme nt,medica tion Not available Not available Not available 03/15/2025 64976 91 RxNorm JOSE L [place], [place] [facility] 5 10:41:13 Medications Name Sig Start Date Stop Date Status Note LastModified by Organization Details LastModified Time fluconazo le 100 mg tablet TAKE 2 TABLETS BY MOUTH ON DAY 1 AND THEN 1 TABLET EVERY DAY active Not Available Not Available No t Available clotrimaz ole 10 mg khanh DISSOLVE 1 LOZENGE BY MOUTH FIVE TIMES DAILY X 10 DAYS 08/15 completed Not Available Not Available Not Available fluconazo le 200 mg tablet TAKE 1 TABLET BY MOUTH EVERY DAY active Not Available Not Available No t Available famotidin e 40 mg tablet TAKE 1 TABLET BY MOUTH EVERY DAY AT BEDTIME active Not Available Not Available No t Available prednison e 20 mg tablet TAKE 2 TABLETS BY MOUTH EVERY DAY FOR 5 DAYS 05/18 completed Not Available Not Available Not Available clopidogr el 75 mg tablet TAKE 1 TABLET BY MOUTH EVERY DAY active Not Available Not Available No t Available ciproflox acin 500 mg tablet TAKE 1 TABLET BY MOUTH TWICE DAILY FOR 7 DAYS 02/20 completed Not Available Not Available Not Available omeprazol e 40 mg capsule,d elayed release Take 1 capsule every day by oral route. active GI increase d Not Available Not Available Not Available tramadol 50 mg tablet TAKE 1 TABLET BY MOUTH EVERY 12 HOURS NEEDED FOR PAIN 05/18 completed Not Available Not Available Not Available amoxicill in 500 mg tablet TAKE 1 TABLET BY MOUTH EVERY 12 HOURS FOR 10 DAYS 02/20 completed Not Available Not Available Not Available glimepiri de 1 mg tablet TAKE 1/2 TABLET BY MOUTH EVERY DAY 2024 active Not Available Not Available Not Avai lable alprazola m 0.25 mg tablet TAKE 1 TABLET BY MOUTH TWICE DAILY NEEDED active Not Available Not Available No t Available pantopraz ole 40 mg tablet,de layed release TAKE 1 TABLET BY MOUTH EVERY MORNING active Not Available Not Available No t Available omeprazol e 20 mg capsule,d elayed release TAKE 1 CAPSULE BY MOUTH EVERY MORNING 03/28 completed Not Available Not Available Not Available furosemid e 20 mg tablet TAKE 1 TABLET BY MOUTH EVERY DAY NEEDED FOR SWELLING active Not Available Not Available No t Available ergocalci ferol (vitamin D2) 1,250 mcg (50,000 unit) capsule TAKE 1 CAPSULE BY MOUTH WEEKLY active Not Available Not Available No t Available albuterol sulfate HFA 90 mcg/actua tion aerosol inhaler INHALE 2 PUFFS BY MOUTH EVERY 4 HOURS active Not Available Not Available No t Available lisinopri l 40 mg tablet TAKE 1 TABLET BY MOUTH EVERY DAY active Not Available Not Available No t Available cefdinir 300 mg capsule TAKE 1 CAPSULE BY MOUTH EVERY 12 HOURS FOR 7 DAYS 02/20 completed Not Available Not Available Not Available doxycycli ne hyclate 100 mg tablet TAKE 1 TABLET BY MOUTH TWICE DAILY FOR 7 DAYS 02/20 completed Not Available Not Available Not Available rosuvasta tin 40 mg tablet TAKE 1 TABLET BY MOUTH DAILY active Not Available Not Available No t Available nebivolol 2.5 mg tablet TAKE 1 TABLET BY MOUTH DAILY 02/20 completed Not Available Not Available Not Available nebivolol 10 mg tablet TAKE 1 TABLET BY MOUTH DAILY active Not Available Not Available No t Available OneTouch Delica Plus Lancet 33 gauge USE TO TEST TWICE DAILY active Not Available Not Available No t Available Vitals Date Recorded Body height Body mass index (BMI) Body weight Heart rate Oxygen saturation Oxygen saturation in Arterial blood by Pulse oximetry Systolic blood pressure Diastolic blood pressure Provider Name and Address Organization Details Last Updated DateTime 5 172.72 cm 20.1 kg/m2 19431.6 3 g 58 /min 96 % 96 % 124 mm[Hg] 66 mm[Hg] [facility] 5 10:44:55 Date Recorded Body height Body mass index (BMI) Body weight Heart rate Oxygen saturation Oxygen saturation in Arterial blood by Pulse oximetry Systolic blood pressure Diastolic blood pressure Provider Name and Address Organization Details Last Updated DateTime 4 172.72 cm 23 kg/m2 18618.4 5 g 71 /min 96 % 96 % 124 mm[Hg] 70 mm[Hg] Meli Fox [facility] 4 09:57:30 Date Recorded Body height Body mass index (BMI) Body weight Heart rate Oxygen saturation Oxygen saturation in Arterial blood by Pulse oximetry Systolic blood pressure Diastolic blood pressure Provider Name and Address Organization Details Last Updated DateTime 4 172.72 cm 22.4 kg/m2 20411.0 8 g 64 /min 98 % 98 % 130 mm[Hg] 80 mm[Hg] Dyan [facility] 4 15:39:47 Date Recorded Body height Body mass index (BMI) Body weight Heart rate Oxygen saturation Oxygen saturation in Arterial blood by Pulse oximetry Systolic blood pressure Diastolic blood pressure Provider Name and Address Organization Details Last Updated DateTime 4 172.72 cm 22.5 kg/m2 33765.9 5 g 62 /min 98 % 98 % 136 mm[Hg] 64 mm[Hg] Meli Fox MA [facility] 4 14:32:09 Date Recorded Body height Body mass index (BMI) Body weight Heart rate Oxygen saturation Oxygen saturation in Arterial blood by Pulse oximetry Systolic blood pressure Diastolic blood pressure Provider Name and Address Organization Details Last Updated DateTime 4 172.72 cm 21.8 kg/m2 43806.8 6 g 64 /min 96 % 96 % 156 mm[Hg] 70 mm[Hg] Andreia Arriola MA [facility] 4 10:47:26 Social History Question Answer Notes LastModified by Organizat ion Details LastModified Time Tobacco Smoking Status Never Smoker Irma Garza MA [facility] 02/21/2024 12:22:03 Do You Have An Advance Directive? No Information not available 05/18/2024 Are You Blind Or Do You Have Difficulty Seeing? No Information not available 02/21/2024 What Is Your Level Of Caffeine Consumption? Moderate Ice Tea Information not available 05/18/2024 In The 14 Days Before Symptom Onset, Have You Had Close Contact With A Laboratory-confir med COVID-19 While That Case Was Ill? No Information not available 07/13/2024 In The 14 Days Before Symptom Onset, Have You Had Close Contact With A Person Who Is Under Investigation For COVID-19 While That Person Was Ill? No Information not available 07/13/2024 Have You Been To An Area Known To Be High Risk For COVID-19? No Information not available 07/13/2024 Are You Deaf Or Do You Have Serious Difficulty Hearing? No Information not available 02/21/2024 What Type Of Diet Are You Following? REGULAR Information not available 05/18/2024 Are There Any Guns Present In Your Home? No Information not available 07/13/2024 What Was The Date Of Your Most Recent Tobacco Screening? 03/15/2025 [email or web address] Information not available 03/15/2025 What Is Your Relationship Status? Information not available 02/21/2024 Do You Use Your Seat Belt Or Car Seat Routinely? Yes Information not available 05/18/2024 Do You Have Smoke And Carbon Monoxide Detectors In Your Home? Yes Information not available 05/18/2024 Do You Use Sunscreen Routinely? Yes Information not available 07/13/2024 Has Tobacco Cessation Counseling Been Provided? No Information not available 09/21/2024 Sex: Female Functional Status Question Answer Note LastModified by Organizat ion Details LastModified Time Do you use any illicit or recreational drugs? No Information not available 09/21/2024 Do you or have you ever used any other forms of tobacco or nicotine? No Information not available 09/21/2024 What is your level of alcohol consumption? None Information not available 02/21/2024 Are you currently employed? No Information not available 07/13/2024 Are you able to care for yourself? Yes Information not available 02/21/2024 What is your exercise level? None Information not available 05/18/2024 Mental Status Question Answer Note LastModified by Organization D etails LastModified Time Do you feel stressed (tense, restless, nervous, or anxious, or unable to sleep at night)? [id number] Information not available 05/18/2024 Family History Relationship Description Onset Age of this Age Resolved Age Notes LastModified by Organization Details LastModified Time Father Diabetes mellitus [email or web address] Not available 2023 12:23:59 Father Heart disease [email or web address] Not available 2023 12:24:08 Father Hypertensive disorder [email or web address] Not available 2023 12:24:19 Mother Diabetes mellitus [email or web address] Not available 2023 12:23:59 Mother Heart disease [email or web address] Not available 2023 12:24:08 Mother Hypertensive disorder [email or web address] Not available 2023 12:24:19 Mother Hypercholest erolemia apaytonma Not available 2023 12:24:27 Mother Osteoporosis [email or web address] Not avai lable 02/21/2024 12:24:32 Brother Diabetes mellitus [email or web address] Not available 2023 12:23:59 Brother Heart disease apaytonma Not available 2023 12:24:08 Brother Hypertensive disorder apaytonma Not available 2023 12:24:19 Brother Hypercholest erolemia apaytonma Not available 2023 12:24:27 Medical History Condition Response Coronary Artery Disease N Other N Atrial Fibrillation N High Blood Pressure Y Thyroid Problems N Kidney or Bladder Problems N Depression N COPD N Blood Clots N GI Problems N Skin Problems N Anemia N Heart Attack (MD) N Diabetes Y Anxiety Disorder Y Muscle, Joint, or Bone Problems N Seizures/Epilepsy N Acid Reflux (GERD) Y Cancer N Stroke Y Allergies N Asthma Y High Cholesterol Y Hepatitis N Liver Disease N Headaches N Osteoporosis N Heart Failure Y Gynecological HistoryNo gynecological history recorded. Obstetrics History GPAL:G 0 P 0 0 0 0 Immunizations Vaccine Type Date Status Note Provider Nam e and Address Organization Details Recorded Time Influenza, high-dose, quadrivalent, PF 08/23/2020 completed Corbin García [place], [place] [facility] 09/21/2024 15:13:56 Influenza, high-dose, quadrivalent, PF 09/08/2022 completed Corbin García [place], [place] [facility] 09/21/2024 15:13:56 COVID-19, mRNA, LNP-S, PF, 30 mcg/0.3 mL dose 07/18/2021 completed Corbin García [place], [place] [facility] 09/21/2024 15:13:56 COVID-19, mRNA, LNP-S, PF, 30 mcg/0.3 mL dose 08/08/2021 completed Corbin García [place] [facility] 09/21/2024 15:13:56 COVID-19, mRNA, LNP-S, PF, 30 mcg/0.3 mL dose 08/20/2021 completed JOSE L [place], [place] [facility] 09/21/2024 15:13:56 Influenza, high-dose, trivalent, PF 09/03/2017 completed JOSE L Lombardi, [place] - [facility] 09/21/2024 15:13:56 Influenza, high-dose, trivalent, PF 09/26/2018 completed JOSE [place] [facility] 09/21/2024 15:13:56 Influenza, split virus, trivalent, PF 09/18/2014 completed JOSE L [place] [facility] 09/21/2024 15:13:56 Past Encounters Encounter ID Performer Location Encounter Start Date Encounter Closed Date Diagnosis/Indication Diagnosis SNOMED-CT Code Diagnosis ICD10 Code Diagnosis Note [id number] Toby Vela MD [facility] [employer] [facility] [place] [address] [place] [address] 02/21/2024 12:11:35 02/21/2024 12:53:19 Essential hypertension 81759316 I10 Type 2 vidal betes mellitus without complication 964498962 E11.9 Anxiety 77581037 F41.9 Hyperlipidemia 01626262 E78.5 Anemia 479182903 D64.9 Gastroesop hageal reflux disease without esophagitis 042058676 K21.9 Constipation 97892162 K5 9.00 [id number] Toby Vela MD [facility] [employer] [facility] [place] [address] [place] [address] 04/06/2024 13:25:54 04/06/2024 14:06:34 Gastroesophageal reflux disease without esophagitis 554165317 K21.9 [id number] Toby Vela MD [facility] [employer] [facility] [place] [address] [place] [address] 05/18/2024 10:05:19 05/18/2024 11:10:54 Essential hypertension 08108915 I10 Gastroesop hageal reflux disease without esophagitis 206941858 K21.9 Hyperlipidemia 79829361 E78.5 Type 2 vidal betes mellitus without complication 056877671 E11.9 Chronic di astolic heart failure 470176842 I50.32 [id number] Toby Vela MD [facility] [employer] [facility] [place] [address] [place] [address] 07/13/2024 09:44:54 07/13/2024 11:01:08 Essential hypertension 49608265 I10 Type 2 vidal betes mellitus without complication 466679408 E11.9 Left side sciatica 01926 26621 49680 M54.32 Chronic di astolic heart failure 750847362 I50.32 Gastroesop hageal reflux disease without esophagitis 887056359 K21.9 Hyperlipidemia 06653926 E78.5 [id number] Toby Vela MD [facility] ([facility]) [address] [place] [address] 08/15/2024 15:15:34 08/15/2024 16:34:12 Right flank pain 000309434 R10.9 [id number] Toby Vela MD [facility] [employer] [address] [place] [address] 09/21/2024 14:03:15 09/21/2024 15:14:20 Essential hypertension 05527339 I10 Type 2 vidal betes mellitus without complication 320511485 E11.9 Hyperlipidemia 07469393 E78.5 Gastroesop hageal reflux disease without esophagitis 612814818 K21.9 Chronic di astolic heart failure 065137340 I50.32 Anxiety 57976623 F41.9 [id number] Toby Vela MD [facility] [employer] [address] [place] [address] 11/09/2024 10:19:45 11/09/2024 11:15:57 Body mass index 20-24 - normal 358532437 Z68.21 Essential hypertension 52472780 I10 Type 2 vidal betes mellitus without complication 661055292 E11.9 Screening for malignant neoplasm of colon 316002575 Z12.11 Chronic di astolic heart failure 294628273 I50.32 Anxiety 68896197 F41.9 Gastroesop hageal reflux disease without esophagitis 457029285 K21.9 [id number] Toby Vela MD [facility] [employer] [address] [place] [address] 03/15/2025 10:29:10 03/15/2025 11:19:08 Body mass index 20-24 - normal 863984463 Z68.20 Overweight 813384259 E66 .3 Essential hypertension 06111971 I10 Weight decreased 1446758 01 R63.4 Anemia 644543829 D64.9 Anxiety 14913549 F41.9 Chronic di astolic heart failure 487042074 I50.32 Gastroesop hageal reflux disease without esophagitis 909156874 K21.9 Hyperlipidemia 59175121 E78.5 Health Concerns Section Related Observation LastModified by Organization Detai ls LastModified Time None Recorded Concern Status LastModified by Organization Details LastModified Time None Recorded Advance Directives Directive N: Payers Encounter Date Sequence Insurance Name Policy Number Policy Hernandes Covered Member ID Hernandes Member ID Guarantor Name 07/13/2024 1 [place] Yary S Cortner [id number] Yary Cortner 07/13/2024 2 [place] [id number] Yary S Cortner [id number] Yary Cortner 08/15/2024 1 [place] Yary S Cortner [id number] Yary Cortner 08/15/2024 2 [place] [id number] Yary S Cortner [id number] Yary Cortner 09/21/2024 1 [place] Yary S Cortner [id number] Yary Cortner 09/21/2024 2 [place] [id number] Yray S Cortner [id number] Yary Cortner 11/09/2024 1 [place] Yary S Cortner [id number] Yary Cortner 11/09/2024 2 [place] [id number] Yary S Cortner [id number] Yary Cortner 03/15/2025 1 [place] Yary S Cortner [id number] Yary Cortner 03/15/2025 2 [place] [id number] Yary S Cortner [id number] Yary Cortner Notes Date Note Type Note Provider Name and Address Organization Details Recorded Time 07/13/2024 text/html hypertension herminio st shortness polydipsia having some left-sided physical diastolic chest pain shortness GERD seems to be stable she had another round of the Mycelex troches she was from GI hyperlipidemia does try to follow a low-fat diet. She has had some dysuria Toby Vela MD Attn: [address] [facility], [place], [address], [place] [facility] 07/13/2024 22:00:23 08/15/2024 text/html acute appointmen t some pain in the right flank does not seem to radiate no fever no chills [id number] Toby Vela MD Attn: [address] [facility], [place], [address], [facility] - [facility] 09/10/2024 21:03:01 09/21/2024 text/html hypertension no headache no dizziness. Cardiomyopathy no PND orthopnea no DENTON no edema. Diabetes no polyphagia no polydipsia no hypoglycemia. GERD some residual symptoms she is going to be follow up with GI. Anxiety stable kidney lesion following with Urology Toby Vela MD Attn: [address] [facility], [place], [address], [facility] - [facility] 09/21/2024 22:34:06 11/09/2024 text/html diabetes just denney d an A1c last month that was 6.7 no polyphagia polydipsia. Hypertension no headache or dizziness. Cardiomyopathy no PND orthopnea or edema no DENTON. Chronic diastolic heart failure she has not had any decompensated heart failure symptoms. Anxiety has been a little bit up with the holidays but overall doing fine. GERD no nausea and vomiting she was working with GI with a history of the esophageal stricture as well Toby Vela MD Attn: [employer] [facility], [place], [address], [place] [facility] 11/12/2024 16:18:45 03/15/2025 text/html hypertension no headache no dizziness. Cardiomyopathy no PND orthopnea no DENTON no edema. Diabetes no polyphagia no polydipsia no hypoglycemia. GERD some residual symptoms she is going to be follow up with GI. They stopped her PPI that did not work she took Linzess that did work gave her diarrhea she says the only thing that is helped his her fluconazole they referred her to [facility] anxiety stable kidney lesion following with Urology Toby Vela MD Attn: Accounting[address] [facility], [place], [address], [facility] - [facility] 03/25/2025 23:19:53 OBGyn Episode No OBEpisode recorded.
--- OUTSIDE RECORDS SUMMARY | 2025-04-19 07:38 | XMS_ITS | Data Portability ---
Author Organization [place] - [facility] [employer], Main Office Address [address] [place] [address] Care Team Providers Care Cleaner And Trimmer Name Role Phone TOBY VELA Primary Care Provider [phone] TOBY VELA Referring Provider [phone] Assessment Encounter Date Assessment Date Assessment LastModified by Organization Details LastModified Time 04/08/2023 04/08/2023 Abdominal pain GERD add Pepcid diabetes check A1c hypertension 130/70 looking good anxiety alprazolam doing well she will follow-up with me in 4 months sciatica kind of comes and goes and she is going to do some stretching [email or web address] Not available 04/17/2023 16:26:12 07/29/2023 07/29/2023 CT scan lumbar spine other medications and problems will continue to be evaluated and addressed continue current therapy follow-up 4 months [email or web address] Not available 08/16/2023 22:45:31 12/06/2023 12/06/2023 Blood work Doxycycline Prednisone Diagnosis in assessment and plan been discussed Follow-up 4 months or if not improved Not available 12/06/2023 14:35:23 Plan of Treatment Reminders Order Date Submit Date Provider Last Modified By Organization Details Last Modified Time Details Appointments None recorded. Lab CBC w/ auto diff [email or web address] [facility] (Lab), [address] [place], [address], 12:55:17 CMP, serum or plasma [email or web address] [facility] (Lab), [address] [place], [address], 4 12:55:17 lipid panel, serum [address] (Lab), [address] [place], [address], 4 12:55:17 glycohemogl obin, total, blood 2023 024 [facility] (Lab), [address] [place], [address], 4 16:03:31 CMP, serum or plasma 2022 023 [facility] (Lab), [address] [place], [address], 3 13:19:58 lipid panel, serum 2022 023 [facility] (Lab), [address] [place], [address], 3 13:20:00 CBC w/ auto diff 2022 023 [facility] (Lab), [address] [place], [address], 3 12:59:41 glycohemogl obin, total, blood 2022 023 [facility] (Lab), [address] [place], [address], 3 13:41:22 Referral None recorded. Procedures None recorded. Surgeries None recorded. Imaging CT, lumbar spine, w/o contrast 2022 023 [email or web address] Not available 3 10:32:13 Medication Orders doxycycline hyclate 100 mg tablet [address] [id number], [address] [facility], [place], [place], [id number], 14:02:20 prednisone 20 mg tablet 2023 024 [email or web address] [id number], [address] [facility], [place], [place], [id number], 14:03:14 Patient TargetsNo targets recorded. Patient Instructions Encounter Date Encounter Id Patient Instructions Last Modified By Organization Details Last Modified Time 01/10/2025 [id number] REFLUX DIET. [email or web address] Not available 01/10/2025 15:46:29 PT WITH RECURREN T EPIGASTRIC PAIN THAT DOES BETTER WITH FLUCONAZOLE . RECOMMEND TO TAPER OFF OMEPRAZOLE 40 MG AND START FAMOTIDINE 40 MG IN THE AM AND CONTINUE HER BEDTIME DOSE. F/U IN 4 WEEKS . [email or web address] Not available 01/10/2025 15:47:48 02/21/2025 [id number] D/C OMEP[RAZOLE /FAMOTIDINE [email or web address] Not available 02/21/2025 12:41:40 PT WITH SX OF PAIN MORE C/W CONSTIPATION . TRY LINZESS 145 MCG/ D . D/C OMEPRAZOLE / FAMOTIDINE . F/U IN 4 WEEKS . [email or web address] Not available 02/21/2025 12:41:27 Reason for Referral None Reported. Results Created Date Observation Date Name Description Value Unit Range Abnormal Flag Note LastModifiedBy Organization Detail LastModifiedTime 03/12/2003/12/2023 urina lysis , dipst ick Leukocytes (reference range: negative russell/ l) Negati ve Not Available [facility] [address], [place], [address], 03/12/2023 12:24:21 03/12/20 23 03/12/2023 urina lysis , dipst ick Nitrite (reference rage: negative mg/dl) negati ve Not Available [facility] [address], [place], [address], 03/12/2023 12:24:21 03/12/20 23 03/12/2023 urina lysis , dipst ick Urobilinogen (reference range: 0.2-1 mg/dl) 0.2 Not Available [facility] [address] [place] [address] [address], [place], [address], 03/12/2023 12:24:21 03/12/20 23 03/12/2023 urina lysis , dipst ick Protein (reference range: negative mg/dl) Negati ve Not Available [facility] [address] [place] [address] [address], [place], [address], 03/12/2023 12:24:21 03/12/20 23 03/12/2023 urina lysis , dipst ick pH (reference range: 5-7) 5.5 Not Available [facility] [address] [place] [address] [address], [place], [address], 03/12/2023 12:24:03/12/20 23 03/12/2023 urina lysis , dipst ick Blood (reference range: negative Gurmeet/ l) Non-He molyze d: Trace Not Available [facility] [address], [place], [address], 03/12/2023 12:24:21 03/12/20 23 03/12/2023 urina lysis , dipst ick Specific [place] (reference range: 1.005-1.030) 1.025 Not Available [facility] [address], [place], [address], 03/12/2023 12:24:21 03/12/20 23 03/12/2023 urina lysis , dipst ick Ketone (reference range: negative mg/dl) Negati ve Not Available [facility] [address], [place], [address], 03/12/2023 12:24:21 03/12/20 23 03/12/2023 urina lysis , dipst ick Bilirubin (reference range: negative mg/dl) Negati ve Not Available [facility] [address], [place], [address], 03/12/2023 12:24:21 03/12/20 23 03/12/2023 urina lysis , dipst ick Glucose (reference range: negative mg/dl) Negati ve Not Available [facility] [address] [facility] [address], [place], [address], 03/12/2023 12:24:21 03/12/20 23 03/12/2023 urina lysis , dipst ick Appearance Clear Not Available [facility] [address] [facility], [place], [address], 03/12/2023 12:24:21 03/12/20 23 03/12/2023 urina lysis , dipst ick Color Yellow Not Available [facility] [place] [address] [facility], [place], [address], 03/12/2023 12:24:21 04/08/20 23 04/08/2023 CBC/C OMPLE TE BLD COUNT W/DIF F white blood cells 5.5 x10'3 /uL 4.2-[address] [facility] (Lab) [address], [place], [address], 04/08/2023 12:59:41 04/08/20 23 04/08/2023 CBC/C OMPLE TE BLD COUNT W/DIF F red blood cells 4.00 x10'6 /uL 3.80-[address] [facility] (Lab) [address] [place], [address], 04/08/2023 12:59:41 04/08/2004/08/2023 CBC/C OMPLE TE BLD COUNT W/DIF F hemoglobin 11.9 g/dL 12.0-1 [address] [facility] (Lab) [address] [place], [address], 04/08/2023 12:59:41 04/08/20 23 04/08/2023 CBC/C OMPLE TE BLD COUNT W/DIF F hematocrit 37.7 % 35.7-[address] [facility] (Lab) [address] [place], [address], 04/08/2023 12:59:41 04/08/20 23 04/08/2023 CBC/C OMPLE TE BLD COUNT W/DIF F mean red cell volume 94.3 fL 82.0-[address] [facility] (Lab) [address] [place], [address], 04/08/2023 12:59:41 04/08/20 23 04/08/2023 CBC/C OMPLE TE BLD COUNT W/DIF F mean red cell hemoglobin 29.8 pg 27.0-[address] [facility] (Lab) [address] [place], [address], 04/08/2023 12:59:41 04/08/20 23 04/08/2023 CBC/C OMPLE TE BLD COUNT W/DIF F mean RBC HGB concentratio n 31.6 g/dL 31.0-[address] [facility] (Lab) [address] [place], [address], 04/08/2023 12:59:41 04/08/20 23 04/08/2023 CBC/C OMPLE TE BLD COUNT W/DIF F red cell distribution width 13.0 % 11.8-[address] [facility] (Lab) [address] [place], [address], 04/08/2023 12:59:41 04/08/20 23 04/08/2023 CBC/C OMPLE TE BLD COUNT W/DIF F platelets 239 x10'3 /uL 150-[address] [facility] (Lab) [address] [place], [address], 04/08/2023 12:59:41 04/08/20 23 04/08/2023 CBC/C OMPLE TE BLD COUNT W/DIF F mean platelet volume 10.5 fL 9.0-[address] [facility] (Lab) [address] [place], [address], 04/08/2023 12:59:41 04/08/2004/08/2023 CBC/C OMPLE TE BLD COUNT W/DIF F neutrophils 47.9 % 39.0-[address] [facility] (Lab) [address] [place], [address], 04/08/2023 12:59:41 04/08/2004/08/2023 CBC/C OMPLE TE BLD COUNT W/DIF F lymphocytes 41.9 % 16.0-[address] [facility] (Lab) [address] [place], [address], 04/08/2023 12:59:41 04/08/20 23 04/08/2023 CBC/C OMPLE TE BLD COUNT W/DIF F monocytes 7.0 % 5.0-[address] [facility] (Lab) [address] [place], [address], 04/08/2023 12:59:41 04/08/20 23 04/08/2023 CBC/C OMPLE TE BLD COUNT W/DIF F eosinophils 2.7 % 1.0-7. [address] [facility] (Lab) [address] [place], [address], 04/08/2023 12:59:41 04/08/2004/08/2023 CBC/C OMPLE TE BLD COUNT W/DIF F basophils 0.5 % 0.0-2. [address] [facility] (Lab) [address] [place], [address], 04/08/2023 12:59:41 04/08/20 23 04/08/2023 CBC/C OMPLE TE BLD COUNT W/DIF F immature granulocytes 0.0 % 0.00-[address] [facility] (Lab) [address] [place], [address], 04/08/2023 12:59:41 04/08/20 23 04/08/2023 CBC/C OMPLE TE BLD COUNT W/DIF F neutrophils, absolute count 2.65 x10'3 /uL 1.5-8. [address] [facility] (Lab) [address] [place], [address], 04/08/2023 12:59:41 04/08/20 23 04/08/2023 CBC/C OMPLE TE BLD COUNT W/DIF F lymphocytes, absolute count 2.32 x10'3 /uL 1.07-[address] [facility] (Lab) [address] [place], [address], 04/08/2023 12:59:41 04/08/20 23 04/08/2023 CBC/C OMPLE TE BLD COUNT W/DIF F monocytes, absolute count 0.39 x10'3 /uL 0.29-[address] [facility] (Lab) [address] [place], [address], 04/08/2023 12:59:41 04/08/20 23 04/08/2023 CBC/C OMPLE TE BLD COUNT W/DIF F eosinophils, absolute count 0.15 x10'3 /uL 0.02-[address] [facility] (Lab) [address] [place], [address], 04/08/2023 12:59:41 04/08/20 23 04/08/2023 CBC/C OMPLE TE BLD COUNT W/DIF F basophils, absolute count 0.03 x10'3 /uL 0.01-[address] [facility] (Lab) [address] [place], [address], 04/08/2023 12:59:41 04/08/20 23 04/08/2023 CBC/C OMPLE TE BLD COUNT W/DIF F immature granulocytes ,absolute 0.00 x10'3 /uL 0.00-[address] [facility] (Lab) [address] [place], [address], 04/08/2023 12:59:41 04/08/20 23 04/08/2023 CBC/C OMPLE TE BLD COUNT W/DIF F nucleated red blood cells 0.0 % -0 Not Available [facility] (Lab) [address] [place], [address], 04/08/2023 12:59:41 04/08/20 23 04/08/2023 CBC/C OMPLE TE BLD COUNT W/DIF F NRBC# 0.00 x10'3 /uL Not Available [facility] (Lab) [address] [place], [address], 04/08/2023 12:59:41 04/08/20 23 04/08/2023 COMPR EHENS GREGORY METAB OLIC PANEL sodium 142 mmol/ L 137-[address] [facility] (Lab) [address] [place], [address], 04/08/2023 13:19:58 04/08/2004/08/2023 COMPR EHENS GREGORY METAB OLIC PANEL potassium 4.7 mmol/ L 3.5-5. 1 Not Available [facility] (Lab) [address] [place], [address], 04/08/2023 13:19:58 04/08/20 23 04/08/2023 COMPR EHENS GREGORY METAB OLIC PANEL chloride 105 mmol/ L 98-107 Not Available [facility] (Lab) [address] [place], [address], 04/08/2023 13:19:58 04/08/20 23 04/08/2023 COMPR EHENS GREGORY METAB OLIC PANEL carbon dioxide 29 mmol/ L 22-[address] [facility] (Lab) [address] [place], [address], 04/08/2023 13:19:58 04/08/20 23 04/08/2023 COMPR EHENS GREGORY METAB OLIC PANEL anion gap 12.7 mmol/ L 14-[address] [facility] (Lab) [address] [place], [address], 04/08/2023 13:19:58 04/08/20 23 04/08/2023 COMPR EHENS GREGORY METAB OLIC PANEL glucose 124 mg/dL 70-[address] [facility] (Lab) [address] [place], [address], 04/08/2023 13:19:58 04/08/20 23 04/08/2023 COMPR EHENS GREGORY METAB OLIC PANEL BUN 18 mg/dL 8-[address] [facility] (Lab) [address] [place], [address], 04/08/2023 13:19:58 04/08/20 23 04/08/2023 COMPR EHENS GREGORY METAB OLIC PANEL creatinine 0.75 mg/dL 0.66-1 .25 Not Available [facility] (Lab) [address] [place], [address], 04/08/2023 13:19:58 04/08/2004/08/2023 COMPR EHENS GREGORY METAB OLIC PANEL GFR >60 Refer ence Range : [place] ge GFR Healt hy Adult : >60 mL/mi n/1.7 3 m2 Chron ic Kidne y Disea se: 15-60 mL/mi n/1.7 3 m2 Kidne y Failu re: <15/m L/min /1.73 m2 www.n iddk. nih.g ov The MDRD study equat ion has not been valid ated in child daniela <18 years of age; pregn ant women ; the elder ly >85 years of age; or in some racia l or ethni c subgr oups, such as Hisdc nics. Outsi de the valid ated catian eters , estim ated GFR is less accur ate, requi ring clini laquita judgm ent on a case- by-ca se basis . Clini laquita inter preta tion for other races and ages must be made by the clini kathrine. The MDRD study equat ion has not been valid ated for the evalu ation of serum creat inine relat ed to nutri jalen l statu s or medic ation usage . For perso ns <18 years of age, a pedia tric GFR calcu lator is avail able on the [facility] websi te: https ://lexi gandhi.jael martinez.o rg/pr ofess ional s/kdo qi/gf r_cal culat or Not Available [facility] (Lab) [address] [place], [address], 04/08/2023 13:19:58 04/08/2004/08/2023 COMPR EHENS GREGORY METAB OLIC PANEL alkaline phosphatase 50 U/L 38-126 Not Available [facility] (Lab) [address] [place], [address], 04/08/2023 13:19:58 04/08/20 23 04/08/2023 COMPR EHENS GREGORY METAB OLIC PANEL alanine aminotransfe rase 17 U/L 0-35 Not Available [facility] (Lab) [address] [place], [address], 04/08/2023 13:19:58 04/08/20 23 04/08/2023 COMPR EHENS GREGORY METAB OLIC PANEL aspartate aminotransfe rase 22 U/L 15-37 Not Available [facility] (Lab) [address] [place], [address], 04/08/2023 13:19:58 04/08/20 23 04/08/2023 COMPR EHENS GREGORY METAB OLIC PANEL bilirubin, total 0.40 mg/dL 0.20-[address] [facility] (Lab) [address] [place], [address], 04/08/2023 13:19:58 04/08/20 23 04/08/2023 COMPR EHENS GREGORY METAB OLIC PANEL calcium 9.5 mg/dL 8.4-[address] [facility] (Lab) [address] [place], [address], 04/08/2023 13:19:58 04/08/20 23 04/08/2023 COMPR EHENS GREGORY METAB OLIC PANEL total protein 6.9 g/dL 6.3-8. [address] [facility] (Lab) [address] [place], [address], 04/08/2023 13:19:58 04/08/20 23 04/08/2023 COMPR EHENS GREGORY METAB OLIC PANEL albumin 4.3 g/dL 3.0-4. [address] [facility] (Lab) [address] [place], [address], 04/08/2023 13:19:58 04/08/20 23 04/08/2023 COMPR EHENS GREGORY METAB OLIC PANEL globulin 2.6 g/dL 2.6-4. [address] [facility] (Lab) [address] [place], [address], 04/08/2023 13:19:58 04/08/2004/08/2023 COMPR EHENS GREGORY METAB OLIC PANEL A/G ratio 1.7 ratio 1.0-2. [address] [facility] (Lab) [address] [place], [address], 04/08/2023 13:19:58 04/08/20 23 04/08/2023 LIPID PANEL cholesterol 144 mg/dL 140-19 9 [facility] NSUS RECOM MENDA TION FOR TIMMY STERO L: ADULT CHILD LOW RISK: <200 <170 BORDE RLINE : <200- 239 ----- HIGH RISK: >240 >[address] [facility] (Lab) [address] [place], [address], 04/08/2023 13:20:00 04/08/20 23 04/08/2023 LIPID PANEL triglyceride s 102 mg/dL 0-150 NIH [facility] NSUS REPOR T RECOM MENDA TION FOR TRIGL YCERI RONNIE: ADULT CHILD LOW RISK: <150 ----- BODER LINE: 150-1 99 ----- HIGH RISK: >200 ----- Not Available [facility] (Lab) [address] [place], [address], 04/08/2023 13:20:00 04/08/20 23 04/08/2023 LIPID PANEL HDL cholesterol 68 mg/dL 40- Not Available [facility] (Lab) [address] [place], [address], 04/08/2023 13:20:00 04/08/2004/08/2023 LIPID PANEL LDL cholesterol, calculated 56 mg/dL 0-130 NIH O[facility] NSUS REPOR T RECOM MENDA TIONS FOR LDL: ADULT CHILD LOW RISK <130 <110 (OPTI MAL LDL) <100 ----- BORDE RLINE : 130-1 59 ----- HIGH RISK: >160 >130 A TRIGL YCERI DE RESUL T >400 INVAL IDATE S THE CALCU LATIO N FOR LDL FRACT IONAT ION - THE LDL RESUL T WILL NOT BE REPOR ODETTE. Not Available [facility] (Lab) [address] [place], [address], 04/08/2023 13:20:00 04/08/20 23 04/08/2023 HEMOG LOBIN A1C HA1C 6.8 % 4.0-6. 0 high Diabe daryl Scree rosey Crite karen: <5.7% Consi stent with absen ce of diabe daryl 5.7-6 .4% Consi stent with incre ased risk for diabe daryl (pred iabet es) >OR=6 .5% Consi stent with diabe daryl REFER ENCE: Diabe daryl Care 2016, 39(Chambers ppl.1 ):s13 -s22 Not [address] [facility] (Lab) [address] [place], [address], 04/08/2023 13:41:22 07/29/20 23 07/29/2023 CBC/C OMPLE TE BLD COUNT W/DIF F white blood cells 6.4 x10'3 /uL 4.2-[address] [facility] (Lab) [address] [place], [address], 07/29/2023 18:50:55 07/29/20 23 07/29/2023 CBC/C OMPLE TE BLD COUNT W/DIF F red blood cells 4.03 x10'6 /uL 3.80-[address] [facility] (Lab) [address] [place], [address], 07/29/2023 18:50:55 07/29/20 23 07/29/2023 CBC/C OMPLE TE BLD COUNT W/DIF F hemoglobin 12.3 g/dL 12.0-[address] [facility] (Lab) [address] [place], [address], 07/29/2023 18:50:55 07/29/20 23 07/29/2023 CBC/C OMPLE TE BLD COUNT W/DIF F hematocrit 39.0 % 35.7-[address] [facility] (Lab) [address] [place], [address], 07/29/2023 18:50:55 07/29/20 23 07/29/2023 CBC/C OMPLE TE BLD COUNT W/DIF F mean red cell volume 96.8 fL 82.0-[address] [facility] (Lab) [address] [place], [address], 07/29/2023 18:50:55 07/29/2007/29/2023 CBC/C OMPLE TE BLD COUNT W/DIF F mean red cell hemoglobin 30.5 pg 27.0-[address] [facility] (Lab) [address] [place], [address], 07/29/2023 18:50:55 07/29/20 23 07/29/2023 CBC/C OMPLE TE BLD COUNT W/DIF F mean RBC HGB concentratio n 31.5 g/dL 31.0-[address] [facility] (Lab) [address] [place], [address], 07/29/2023 18:50:55 07/29/2007/29/2023 CBC/C OMPLE TE BLD COUNT W/DIF F red cell distribution width 13.2 % 11.8-[address] [facility] (Lab) [address] [place], [address], 07/29/2023 18:50:55 07/29/20 23 07/29/2023 CBC/C OMPLE TE BLD COUNT W/DIF F platelets 251 x10'3 /uL 150-[address] [facility] (Lab) [address] [place], [address], 07/29/2023 18:50:55 07/29/2007/29/2023 CBC/C OMPLE TE BLD COUNT W/DIF F mean platelet volume 10.4 fL 9.0-[address] [facility] (Lab) [address] [place], [address], 07/29/2023 18:50:55 07/29/2007/29/2023 CBC/C OMPLE TE BLD COUNT W/DIF F neutrophils 55.1 % 39.0-[address] [facility] (Lab) [address] [place], [address], 07/29/2023 18:50:55 07/29/20 23 07/29/2023 CBC/C OMPLE TE BLD COUNT W/DIF F lymphocytes 36.6 % 16.0-[address] [facility] (Lab) [address] [place], [address], 07/29/2023 18:50:55 07/29/2007/29/2023 CBC/C OMPLE TE BLD COUNT W/DIF F monocytes 5.8 % 5.0-[address] [facility] (Lab) [address] [place], [address], 07/29/2023 18:50:55 07/29/2007/29/2023 CBC/C OMPLE TE BLD COUNT W/DIF F eosinophils 1.7 % 1.0-7. [address] [facility] (Lab) [address] [place], [address], 07/29/2023 18:50:55 07/29/2007/29/2023 CBC/C OMPLE TE BLD COUNT W/DIF F basophils 0.6 % 0.0-2. [address] [facility] (Lab) [address] [place], [address], 07/29/2023 18:50:55 07/29/20 23 07/29/2023 CBC/C OMPLE TE BLD COUNT W/DIF F immature granulocytes 0.2 % 0.00-[address] [facility] (Lab) [address] [place], [address], 07/29/2023 18:50:55 07/29/20 23 07/29/2023 CBC/C OMPLE TE BLD COUNT W/DIF F neutrophils, absolute count 3.54 x10'3 /uL 1.5-8. [address] [facility] (Lab) [address] [place], [address], 07/29/2023 18:50:55 07/29/20 23 07/29/2023 CBC/C OMPLE TE BLD COUNT W/DIF F lymphocytes, absolute count 2.35 x10'3 /uL 1.07-[address] [facility] (Lab) [address] [place], [address], 07/29/2023 18:50:55 07/29/2007/29/2023 CBC/C OMPLE TE BLD COUNT W/DIF F monocytes, absolute count 0.37 x10'3 /uL 0.29-[address] [facility] (Lab) [address] [place], [address], 07/29/2023 18:50:55 07/29/20 23 07/29/2023 CBC/C OMPLE TE BLD COUNT W/DIF F eosinophils, absolute count 0.11 x10'3 /uL 0.02-[address] [facility] (Lab) [address] [place], [address], 07/29/2023 18:50:55 07/29/20 23 07/29/2023 CBC/C OMPLE TE BLD COUNT W/DIF F basophils, absolute count 0.04 x10'3 /uL 0.01-[address] [facility] (Lab) [address] [place], [address], 07/29/2023 18:50:55 07/29/20 23 07/29/2023 CBC/C OMPLE TE BLD COUNT W/DIF F immature granulocytes ,absolute 0.01 x10'3 /uL 0.00-[address] [facility] (Lab) [address] [place], [address], 07/29/2023 18:50:55 07/29/20 23 07/29/2023 CBC/C OMPLE TE BLD COUNT W/DIF F nucleated red blood cells 0.0 % -0 Not Available [facility] (Lab) [address] [place], [address], 07/29/2023 18:50:55 07/29/20 23 07/29/2023 CBC/C OMPLE TE BLD COUNT W/DIF F NRBC# 0.00 x10'3 /uL Not Available [facility] (Lab) [address] [place], [address], 07/29/2023 18:50:55 07/29/20 23 07/29/2023 COMPR EHENS GREGORY METAB OLIC PANEL sodium 143 mmol/ L 137-[address] [facility] (Lab) [address] [place], [address], 07/29/2023 20:10:34 07/29/20 23 07/29/2023 COMPR EHENS GREGORY METAB OLIC PANEL potassium 5.1 mmol/ L 3.5-5. [address] [facility] (Lab) [address] [place], [address], 07/29/2023 20:10:34 07/29/20 23 07/29/2023 COMPR EHENS GREGORY METAB OLIC PANEL chloride 103 mmol/ L 98-[address] [facility] (Lab) [address] [place], [address], 07/29/2023 20:10:34 07/29/20 23 07/29/2023 COMPR EHENS GREGORY METAB OLIC PANEL carbon dioxide 30 mmol/ L 22-[address] [facility] (Lab) [address] [place], [address], 07/29/2023 20:10:34 07/29/20 23 07/29/2023 COMPR EHENS GREGORY METAB OLIC PANEL anion gap 15.1 mmol/ L 14-[address] [facility] (Lab) [address] [place], [address], 07/29/2023 20:10:34 07/29/20 23 07/29/2023 COMPR EHENS GREGORY METAB OLIC PANEL glucose 100 mg/dL 70-[address] [facility] (Lab) [address] [place], [address], 07/29/2023 20:10:34 07/29/20 23 07/29/2023 COMPR EHENS GREGORY METAB OLIC PANEL BUN 13 mg/dL 8-[address] [facility] (Lab) [address] [place], [address], 07/29/2023 20:10:34 07/29/20 23 07/29/2023 COMPR EHENS GREGORY METAB OLIC PANEL creatinine 0.68 mg/dL 0.66-[address] [facility] (Lab) [address] [place], [address], 07/29/2023 20:10:34 07/29/20 23 07/29/2023 COMPR EHENS GREGORY METAB OLIC PANEL GFR >60 Refer ence Range : [place] ge GFR Healt hy Adult : >60 mL/mi n/1.7 3 m2 Chron ic Kidne y Disea se: 15-60 mL/mi n/1.7 3 m2 Kidne y Failu re: <15/m L/min /1.73 m2 www.n iddk. nih.g ov The MDRD study equat ion has not been valid ated in child daniela <18 years of age; pregn ant women ; the elder ly >85 years of age; or in some racia l or ethni c subgr oups, such as Hispa nics. Outsi de the valid ated catina eters , estim ated GFR is less accur ate, requi ring clini lauqita judgm ent on a case- by-ca se basis . Clini laquita inter preta tion for other races and ages must be made by the clini kathrine. The MDRD study equat ion has not been valid ated for the evalu ation of serum creat inine relat ed to nutri jalen l statu s or medic ation usage . For perso ns <18 years of age, a pedia tric GFR calcu lator is avail able on the [facility] websi te: [email or web address] :[email or web address] rg/pr ofess ional s/kdo qi/gf r_cal culat or Not Available [facility] (Lab) [address] [place], [address], 07/29/2023 20:10:34 07/29/20 23 07/29/2023 COMPR EHENS GREGORY METAB OLIC PANEL alkaline phosphatase 49 U/L 38-126 Not Available [facility] (Lab) [address] [place], [address], 07/29/2023 20:10:34 07/29/20 23 07/29/2023 COMPR EHENS GREGORY METAB OLIC PANEL alanine aminotransfe rase 18 U/L 0-35 Not Available [facility] (Lab) [address] [place], [address], 07/29/2023 20:10:34 07/29/20 23 07/29/2023 COMPR EHENS GREGORY METAB OLIC PANEL aspartate aminotransfe rase 23 U/L 15-37 Not Available [facility] (Lab) [address] [place], [address], 07/29/2023 20:10:34 07/29/20 23 07/29/2023 COMPR EHENS GREGORY METAB OLIC PANEL bilirubin, total 0.40 mg/dL 0.20-[address] [facility] (Lab) [address] [place], [address], 07/29/2023 20:10:34 07/29/20 23 07/29/2023 COMPR EHENS GREGORY METAB OLIC PANEL calcium 10.2 mg/dL 8.4-[address] [facility] (Lab) [address] [place], [address], 07/29/2023 20:10:34 07/29/20 23 07/29/2023 COMPR EHENS GREGORY METAB OLIC PANEL total protein 7.7 g/dL 6.3-8. [address] [facility] (Lab) [address] [place], [address], 07/29/2023 20:10:34 07/29/20 23 07/29/2023 COMPR EHENS GREGORY METAB OLIC PANEL albumin 4.9 g/dL 3.0-4. [address] [facility] (Lab) [address] [place], [address], 07/29/2023 20:10:34 07/29/20 23 07/29/2023 COMPR EHENS GREGORY METAB OLIC PANEL globulin 2.8 g/dL 2.6-4. [address] [facility] (Lab) [address] [place], [address], 07/29/2023 20:10:34 07/29/20 23 07/29/2023 COMPR EHENS GREGORY METAB OLIC PANEL A/G ratio 1.8 ratio 1.0-2. [address] [facility] (Lab) [address] [place], [address], 07/29/2023 20:10:34 07/29/20 23 07/29/2023 LIPID PANEL cholesterol 160 mg/dL 140-19 9 NIH OMAR NSUS RECOM MENDA TION FOR TIMMY STERO L: ADULT CHILD LOW RISK: <200 <170 BORDE RLINE : <200- 239 ----- HIGH RISK: >240 >[address] [facility] (Lab) [address] [place], [address], 07/29/2023 20:10:41 07/29/20 23 07/29/2023 LIPID PANEL triglyceride s 125 mg/dL 0-150 NIH OMAR NSUS REPOR T RECOM MENDA TION FOR TRIGL YCERI RONNIE: ADULT CHILD LOW RISK: <150 ----- BODER LINE: 150-1 99 ----- HIGH RISK: >200 ----- Not Available [facility] (Lab) [address] [place], [address], 07/29/2023 20:10:41 07/29/20 23 07/29/2023 LIPID PANEL HDL cholesterol 76 mg/dL 40- Not Available [facility] (Lab) [address] [place], [address], 07/29/2023 20:10:41 07/29/20 23 07/29/2023 LIPID PANEL LDL cholesterol, calculated 59 mg/dL 0-130 NIH OMAR NSUS REPOR T RECOM MENDA TIONS FOR LDL: ADULT CHILD LOW RISK <130 <110 (OPTI MAL LDL) <100 ----- BORDE RLINE : 130-1 59 ----- HIGH RISK: >160 >130 A TRIGL YCERI DE RESUL T >400 INVAL IDATE S THE CALCU LATIO N FOR LDL FRACT IONAT ION - THE LDL RESUL T WILL NOT BE REPOR ODETTE. Not Available [facility] (Lab) [address] [place], [address], 07/29/2023 20:10:41 07/29/20 23 07/29/2023 HEMOG LOBIN A1C HA1C 6.5 % 4.0-6. 0 high Diabe daryl Scree rosey Crite karen: <5.7% Consi stent with absen ce of diabe daryl 5.7-6 .4% Consi stent with incre ased risk for diabe daryl (pred iabet es) >OR=6 .5% Consi stent with diabe daryl REFER ENCE: Diabe daryl Care 2016, 39(Chambers ppl.1 ):s13 -s22 Not Available [facility] (Lab) [address] [place], [address], 07/29/2023 20:22:58 12/06/19 24 12/06/2023 CBC/C OMPLE TE BLD COUNT W/DIF F white blood cells 6.8 x10'3 /uL 4.2-[address] [facility] (Lab) [address] [place], [address], 12/06/2023 12:23:02 12/06/19 24 12/06/2023 CBC/C OMPLE TE BLD COUNT W/DIF F red blood cells 4.05 x10'6 /uL 3.80-[address] [facility] (Lab) [address] [place], [address], 12/06/2023 12:23:02 12/06/19 24 12/06/2023 CBC/C OMPLE TE BLD COUNT W/DIF F hemoglobin 12.5 g/dL 12.0-[address] [facility] (Lab) [address] [place], [address], 12/06/2023 12:23:02 12/06/19 24 12/06/2023 CBC/C OMPLE TE BLD COUNT W/DIF F hematocrit 38.3 % 35.7-[address] [facility] (Lab) [address] [place], [address], 12/06/2023 12:23:02 12/06/19 24 12/06/2023 CBC/C OMPLE TE BLD COUNT W/DIF F mean red cell volume 94.6 fL 82.0-[address] [facility] (Lab) [address] [place], [address], 12/06/2023 12:23:02 12/06/19 24 12/06/2023 CBC/C OMPLE TE BLD COUNT W/DIF F mean red cell hemoglobin 30.9 pg 27.0-[address] [facility] (Lab) [address] [place], [address], 12/06/2023 12:23:02 12/06/19 24 12/06/2023 CBC/C OMPLE TE BLD COUNT W/DIF F mean RBC HGB concentratio n 32.6 g/dL 31.0-[address] [facility] (Lab) [address] [place], [address], 12/06/2023 12:23:02 12/06/19 24 12/06/2023 CBC/C OMPLE TE BLD COUNT W/DIF F red cell distribution width 12.6 % 11.8-[address] [facility] (Lab) [address] [place], [address], 12/06/2023 12:23:02 12/06/19 24 12/06/2023 CBC/C OMPLE TE BLD COUNT W/DIF F platelets 272 x10'3 /uL 150-[address] [facility] (Lab) [address] [place], [address], 12/06/2023 12:23:02 12/06/19 24 12/06/2023 CBC/C OMPLE TE BLD COUNT W/DIF F mean platelet volume 10.8 fL 9.0-[address] [facility] (Lab) [address] [place], [address], 12/06/2023 12:23:02 12/06/19 24 12/06/2023 CBC/C OMPLE TE BLD COUNT W/DIF F neutrophils 64.1 % 39.0-7 2.0 Not Available [facility] (Lab) [address] [place], [address], 12/06/2023 12:23:02 12/06/19 24 12/06/2023 CBC/C OMPLE TE BLD COUNT W/DIF F lymphocytes 28.5 % 16.0-[address] [facility] (Lab) [address] [place], [address], 12/06/2023 12:23:02 12/06/19 24 12/06/2023 CBC/C OMPLE TE BLD COUNT W/DIF F monocytes 5.6 % 5.0-[address] [facility] (Lab) [address] [place], [address], 12/06/2023 12:23:02 12/06/19 24 12/06/2023 CBC/C OMPLE TE BLD COUNT W/DIF F eosinophils 1.3 % 1.0-7. [address] [facility] (Lab) [address] [place], [address], 12/06/2023 12:23:02 12/06/19 24 12/06/2023 CBC/C OMPLE TE BLD COUNT W/DIF F basophils 0.4 % 0.0-2. [address] [facility] (Lab) [address] [place], [address], 12/06/2023 12:23:02 12/06/19 24 12/06/2023 CBC/C OMPLE TE BLD COUNT W/DIF F immature granulocytes 0.1 % 0.00-[address] [facility] (Lab) [address] [place], [address], 12/06/2023 12:23:02 12/06/19 24 12/06/2023 CBC/C OMPLE TE BLD COUNT W/DIF F neutrophils, absolute count 4.38 x10'3 /uL 1.5-8. [address] [facility] (Lab) [address] [place], [address], 12/06/2023 12:23:02 12/06/19 24 12/06/2023 CBC/C OMPLE TE BLD COUNT W/DIF F lymphocytes, absolute count 1.95 x10'3 /uL 1.07-[address] [facility] (Lab) [address] [place], [address], 12/06/2023 12:23:02 12/06/19 24 12/06/2023 CBC/C OMPLE TE BLD COUNT W/DIF F monocytes, absolute count 0.38 x10'3 /uL 0.29-[address] [facility] (Lab) [address] [place], [address], 12/06/2023 12:23:02 12/06/19 24 12/06/2023 CBC/C OMPLE TE BLD COUNT W/DIF F eosinophils, absolute count 0.09 x10'3 /uL 0.02-[address] [facility] (Lab) [address] [place], [address], 12/06/2023 12:23:02 12/06/19 24 12/06/2023 CBC/C OMPLE TE BLD COUNT W/DIF F basophils, absolute count 0.03 x10'3 /uL 0.01-[address] [facility] (Lab) [address] [place], [address], 12/06/2023 12:23:02 12/06/19 24 12/06/2023 CBC/C OMPLE TE BLD COUNT W/DIF F immature granulocytes ,absolute 0.01 x10'3 /uL 0.00-[address] [facility] (Lab) [address] [place], [address], 12/06/2023 12:23:02 12/06/19 24 12/06/2023 CBC/C OMPLE TE BLD COUNT W/DIF F nucleated red blood cells 0.0 % -0 Not Available [facility] (Lab) [address] [place], [address], 12/06/2023 12:23:02 12/06/19 24 12/06/2023 CBC/C OMPLE TE BLD COUNT W/DIF F NRBC# 0.00 x10'3 /uL Not Available [facility] (Lab) [address] [place], [address], 12/06/2023 12:23:02 12/06/19 24 12/06/2023 COMPR EHENS GREGORY METAB OLIC PANEL sodium 140 mmol/ L 137-[address] [facility] (Lab) [address] [place], [address], 12/06/2023 13:13:20 12/06/19 24 12/06/2023 COMPR EHENS GREGORY METAB OLIC PANEL potassium 4.3 mmol/ L 3.5-5. [address] [facility] (Lab) [address] [place], [address], 12/06/2023 13:13:20 12/06/19 24 12/06/2023 COMPR EHENS GREGORY METAB OLIC PANEL chloride 104 mmol/ L 98-[address] [facility] (Lab) [address] [place], [address], 12/06/2023 13:13:20 12/06/19 24 12/06/2023 COMPR EHENS GREGORY METAB OLIC PANEL carbon dioxide 32 mmol/ L 22-[address] [facility] (Lab) [address] [place], [address], 12/06/2023 13:13:20 12/06/19 24 12/06/2023 COMPR EHENS GREGORY METAB OLIC PANEL anion gap 8.3 mmol/ L 14-[address] [facility] (Lab) [address] [place], [address], 12/06/2023 13:13:20 12/06/19 24 12/06/2023 COMPR EHENS GREGORY METAB OLIC PANEL glucose 150 mg/dL 70-99 high Not Available [facility] (Lab) [address] [place], [address], 12/06/2023 13:13:20 12/06/19 24 12/06/2023 COMPR EHENS GREGORY METAB OLIC PANEL BUN 17 mg/dL 8-[address] [facility] (Lab) [address] [place], [address], 12/06/2023 13:13:20 12/06/19 24 12/06/2023 COMPR EHENS GREGORY METAB OLIC PANEL creatinine 0.79 mg/dL 0.66-[address] [facility] (Lab) [address] [place], [address], 12/06/2023 13:13:20 12/06/19 24 12/06/2023 COMPR EHENS GREGORY METAB OLIC PANEL GFR >60 Refer ence Range : [place] ge GFR Healt hy Adult : >60 mL/mi n/1.7 3 m2 Chron ic Kidne y Disea se: 15-60 mL/mi n/1.7 3 m2 Kidne y Failu re: <15/m L/min /1.73 m2 www.n iddk. nih.g ov The MDRD study equat ion has not been valid ated in child daniela <18 years of age; pregn ant women ; the elder ly >85 years of age; or in some racia l or ethni c subgr oups, such as Hispa nics. Outsi de the valid ated catina eters , estim ated GFR is less accur ate, requi ring clini laquita judgm ent on a case- by-ca se basis . Clini laquita inter preta tion for other races and ages must be made by the clini kathrine. The MDRD study equat ion has not been valid ated for the evalu ation of serum creat inine relat ed to nutri jalen l statu s or medic ation usage . For perso ns <18 years of age, a pedia tric GFR calcu lator is avail able on the [facility] websi te: https ://ww w.kid juan.o rg/pr ofess ional s/kdo qi/gf r_cal culat or Not Available [facility] (Lab) [address] [place], [address], 12/06/2023 13:13:20 12/06/19 24 12/06/2023 COMPR EHENS GREGORY METAB OLIC PANEL alkaline phosphatase 54 U/L 38-126 Not Available [facility] (Lab) [address] [place], [address], 12/06/2023 13:13:20 12/06/19 24 12/06/2023 COMPR EHENS GREGORY METAB OLIC PANEL alanine aminotransfe rase 17 U/L 0-35 Not Available [facility] (Lab) [address] [place], [address], 12/06/2023 13:13:20 12/06/19 24 12/06/2023 COMPR EHENS GREGORY METAB OLIC PANEL aspartate aminotransfe rase 23 U/L 15-37 Not Available [facility] (Lab) [address] [place], [address], 12/06/2023 13:13:20 12/06/19 24 12/06/2023 COMPR EHENS GREGORY METAB OLIC PANEL bilirubin, total 0.60 mg/dL 0.20-[address] [facility] (Lab) [address] [place], [address], 12/06/2023 13:13:20 12/06/19 24 12/06/2023 COMPR EHENS GREGORY METAB OLIC PANEL calcium 9.9 mg/dL 8.4-[address] [facility] (Lab) [address] [place], [address], 12/06/2023 13:13:20 12/06/19 24 12/06/2023 COMPR EHENS GREGORY METAB OLIC PANEL total protein 7.4 g/dL 6.3-8. [address] [facility] (Lab) [address] [place], [address], 12/06/2023 13:13:20 12/06/19 24 12/06/2023 COMPR EHENS GREGORY METAB OLIC PANEL albumin 4.7 g/dL 3.0-4. [address] [facility] (Lab) [address] [place], [address], 12/06/2023 13:13:20 12/06/19 24 12/06/2023 COMPR EHENS GREGORY METAB OLIC PANEL globulin 2.7 g/dL 2.6-4. [address] [facility] (Lab) [address] [place], [address], 12/06/2023 13:13:20 12/06/19 24 12/06/2023 COMPR EHENS GREGORY METAB OLIC PANEL A/G ratio 1.7 ratio 1.0-2. [address] [facility] (Lab) [address] [place], [address], 12/06/2023 13:13:20 12/06/19 24 12/06/2023 LIPID PANEL cholesterol 158 mg/dL 140-19 9 NIH OMAR NSUS RECOM MENDA TION FOR TIMMY STERO L: ADULT CHILD LOW RISK: <200 <170 BORDE RLINE : <200- 239 ----- HIGH RISK: >240 >[address] [facility] (Lab) [address] [place], [address], 12/06/2023 12:37:56 12/06/19 24 12/06/2023 LIPID PANEL triglyceride s 113 mg/dL 0-150 NIH OMAR NSUS REPOR T RECOM MENDA TION FOR TRIGL YCERI RONNIE: ADULT CHILD LOW RISK: <150 ----- BODER LINE: 150-1 99 ----- HIGH RISK: >200 ----- Not Available [facility] (Lab) [address] [place], [address], 12/06/2023 12:37:56 12/06/19 24 12/06/2023 LIPID PANEL HDL cholesterol 68 mg/dL 40- Not Available [facility] (Lab) [address] [place], [address], 12/06/2023 12:37:56 12/06/19 24 12/06/2023 LIPID PANEL LDL cholesterol, calculated 67 mg/dL 0-130 NIH OMAR NSUS REPOR T RECOM MENDA TIONS FOR LDL: ADULT CHILD LOW RISK <130 <110 (OPTI MAL LDL) <100 ----- BORDE RLINE : 130-1 59 ----- HIGH RISK: >160 >130 A TRIGL YCERI DE RESUL T >400 INVAL IDATE S THE CALCU LATIO N FOR LDL FRACT IONAT ION - THE LDL RESUL T WILL NOT BE REPOR ODETTE. Not Available [facility] (Lab) [address] [place], [address], 12/06/2023 12:37:56 12/06/19 24 12/06/2023 HEMOG LOBIN A1C HA1C 6.6 % 4.0-6. 0 high Diabe daryl Scree rosey Crite karen: <5.7% Consi stent with absen ce of diabe daryl 5.7-6 .4% Consi stent with incre ased risk for diabe daryl (pred iabet es) >OR=6 .5% Consi stent with diabe daryl REFER ENCE: Diabe daryl Care 2016, 39(Chambers ppl.1 ):s13 -s[address] [facility] (Lab) [address], [place], [address], 12/06/2023 16:03:31 03/12/20 23 03/12/2023 US, bladd er No observ ation record ed. [email or web address] [address], [place], [address], 03/15/2023 09:48:18 08/04/[address], lumba r spine , w/o contr ast [facility] [address], [place] [address] [phone] Patien t Name: YARY RIVAS Access ion #: [id number] Sex: F : 1949 3 Dictat ed By: Alexis Ramirez Attend ing Physic brittaney: GIULIA VELA Orderi Physic brittaney: GIULIA VELA Exam Date: 2022 08:47 AM Exam Name: CT L SPINE WO Admitt ing Diagno sis(es ): CT L SPINE WO Histor y: Low back pain Compar dilshad: None CTDIvo l 11.8 mGy, DLP 371.1 mGy*cm . Techni que: Multip le axial CT images of the spine were obtain ed using bone algori thm. Axial and blanton l reform atting was done. Bone and soft tissue window s were review ed. Findin gs: No CT eviden ce of defini te acute fractu re, spinal disloc ation, or signif icant appear ing acute sublux ation is seen. The visual ized parasp inal soft tissue s are grossl y unrema rkable . Vascul ar calcif icatio ns of the aorta. Impres darrin: No defini te CT eviden ce of acute fractu re or disloc ation of the bony lumbar spine. Electr onical ly Signed by: Alexis Ramirez at 2022 13:36: 08 PM Page [address] [facility] (Imaging) [address], [place], [address], 11/02/2023 10:32:13 01/12/20 24 01/12/2024 , echo ardio gram No observ ation record ed. [email or web address] [facility] [address], [place], [address], 01/12/2024 11:26:18 Result Notes None recorded. Problems Name Problem SNOMED Code Status Onset Date Resolution Date Notes Provider Name and Address Organization Details Recorded Time Irritable bowel syndrome 37661913 Active Not Available [facility] 4 13:13:30 Acute sinusitis 87389309 Active 2021 Not Available [facility] 4 13:13:30 Pain in throat 988827692 Active 2022 Not Available [facility] 4 13:13:30 Asthma 758450637 Active Not Available [facility] 4 13:13:30 Sciatica 22572486 Active Not Available [facility] 4 13:13:30 Transient cerebral ischemia 816494460 Active Not Available [facility] 4 13:13:30 Malaise and fatigue 911052268 Active Not Available [facility] 4 13:13:30 Low back pain 562487290 Completed Corbin García RMIlia fofana, [place] - [employer] 3 12:32:32 Pain in toe 823267106 Completed Not Available [facility] 3 05:19:25 Type 2 diabetes mellitus without complicati on 637582930 Active 2021 Not Available [facility] 4 13:13:30 Bronchitis 53801457 Completed Corbin García RMIlia fofana, [employer] - [employer] 4 11:08:37 Blood in urine 61488004 Completed Not Available [facility] 3 05:19:25 Vitamin D deficiency 20729223 Active Not Available [facility] 4 13:13:30 Hypertensi ve disorder 62336919 Active Not Available [facility] 4 13:13:31 Ingrowing toenail 831979804 Active Not Available [facility] 4 13:13:31 Dysphagia 49973061 Active Not Available [facility] 4 13:13:31 Mitral valve prolapse 932277154 Active Not Available [facility] 4 13:13:31 Eczema 20979607 Active 2019 Not Available [facility] 4 13:13:31 Type 2 diabetes mellitus 40618613 Active Not Available [facility] 4 13:13:31 Uncontroll ed type 2 diabetes mellitus 384475239 Active Not Available [facility] 4 13:13:31 Herpes zoster 8234737 Active 2016 Not Available [facility] 4 13:13:31 Anxiety 71443994 Active 2017 Not Available [facility] 4 13:13:31 Upper respirator y infection 47960685 Active 2022 Not Available [facility] 4 13:13:31 Wheezing 39836810 Completed Not Available [facility] 3 05:19:26 Rhinitis 75361630 Completed Not Available [facility] 3 05:19:26 Diabetes mellitus 98176870 Active Not Available [facility] 4 13:13:31 COVID-19 510894726 Active 2022 Not Available [facility] 4 13:13:31 Fatigue 72012225 Active 2021 Not Available [facility] 4 13:13:31 Cardiomyop athy 26306658 Active Not Available [facility] 4 13:13:31 Acute urinary tract infection 168944683 Active 2022 Not Available [facility] 4 13:13:31 Dysuria 91091480 Active 2022 Not Available [facility] 4 13:13:31 Kidney stone 28591683 Active 2022 Not Available [facility] 4 13:13:31 Gastroesop hageal reflux disease 621106878 Active 2022 Not Available [facility] 4 13:13:30 Abnormal urinalysis 206825662 Active 2022 Not Available [facility] 4 13:13:30 Suprapubic pain 981791436 Active 2022 Not Available [facility] 4 13:13:30 Simple renal cyst 64190132 Active 2022 Not Available [facility] 4 13:13:31 Sciatica 48245580 Active 2022 Not Available [facility] 4 13:13:30 Sciatica 05282045 Active 2022 Not Available [facility] 4 13:13:30 Low back pain 828991140 Active 2022 Not Available [facility] 4 13:13:30 Bronchitis 44844323 Active 2023 Not Available [facility] 4 13:13:30 Gastro-eso phageal reflux disease with esophagiti s 850503043 Active 2024 Ibeth Xavier MD [address], [place] [address], [place], [address] , [employer] [facility] [employer] [facility] 5 14:13:54 Epigastric pain 01230430 Active 2024 Ibeth Xavier MD [address], [place] [address], [place], [address] , [employer] [facility] [employer] [facility] 5 12:39:23 Altered bowel function 79461705 Active 2024 Ibeth Xavier MD [address], [place] [address], [place], [address] , [employer] [facility] [employer] [facility] 5 12:39:33 Gastroesop hageal reflux disease without esophagiti s 197191754 Active 2024 IGNACIO [place], [facility] [employer] [facility] 5 12:49:38 Problem Notes None recorded. Procedures Surgical History Date Name Laterality Status Provider Name and Address Organization Details Recorded Time 03/07/20 Cholecystectomy completed Not Available [facility] 01/20/2023 05:14:05 03/01/20 laparoscopic cholecystectomy completed Not Available [facility] 01/20/2023 05:14:05 Pacemaker completed Not Available [facility] 01/20/2023 05:14:05 Pacemaker completed Not Available [facility] 01/20/2023 05:14:05 Imaging Results None recorded. Procedure Notes None recorded. Medical Equipment None Reported. Allergies Allergen ID Allergen Name Allergen Category Reaction Reaction Severity Criticality Documentation Date Start Date Code Code System Note Provider Name and Address Organization Details Recorded Time 9682 Vaccine product containin g only Clostridi um tetani antigen (medicina l product) medicatio n Not available Not available Not available 01/20/2023 43021 2002 SNOMED Not Available [facility] 3 05:26:56 9683 latex environme nt,medica tion Not available Not available Not available 01/20/2023 34583 91 RxNorm tape Not Available [facility] 3 05:26:56 9684 Jardiance medicatio n nausea Not available Not available 01/20/2023 88123 59 RxNorm Not Available [facility] 3 05:26:56 Medications Name Sig Start Date Stop Date Status Note LastModified by Organization Details LastModified Time cyclobenz aprine 10 mg tablet TK 1 T PO TID active Not Available Not Available No t Available amoxicill in 500 mg capsule active Not Available Not Available Not Available fluconazo le 100 mg tablet TAKE 2 TABLETS BY MOUTH ON DAY 1 AND THEN 1 TABLET EVERY DAY active Not Available Not Available No t Available clotrimaz ole 10 mg khanh DISSOLVE 1 LOZENGE BY MOUTH FIVE TIMES DAILY X 10 DAYS 01/10 completed Not Available Not Available Not Available prednison e 10 mg tablet take [id number], [id number], [id number] active Not Available Not Available No t Available atorvasta tin 20 mg tablet Take 1 tablet every day by oral route. 02/12 completed pt. changed to Rosuvast atin Not Available Not Available Not Available ammonium lactate 12 % lotion NEMESIO EXT TO AB FEET D PRN active Not Available Not Available No t Available valacyclo vir 1 gram tablet TAKE 1 TABLET BY MOUTH THREE TIMES DAILY FOR 7 DAYS 04/21 completed Not Available Not Available Not Available fluconazo le 200 mg tablet TAKE 1 TABLET BY MOUTH EVERY DAY active Not Available Not Available No t Available lisinopri l 20 mg tablet TAKE 1 TABLET BY MOUTH DAILY 07/29 completed Not Available Not Available Not Available famotidin e 40 mg tablet TAKE 1 TABLET BY MOUTH EVERY DAY AT BEDTIME 02/21 completed Not Available Not Available Not Available Medrol (Ke) 4 mg tablets in a dose pack Take as directed 12/23 completed Not Available Not Available Not Available prednison e 20 mg tablet TAKE 2 TABLETS BY MOUTH EVERY DAY FOR 5 DAYS 01/10 completed Not Available Not Available Not Available Zithromax Z-Ke 250 mg tablet TAKE 2 TABLETS (500 MG) BY ORAL ROUTE ONCE DAILY FOR 1 DAY THEN 1 TABLET (250 MG) BY ORAL ROUTE ONCE DAILY FOR 4 DAYS 03/04 completed Not Available Not Available Not Available penicilli n V potassium 500 mg tablet 09/26 completed Not Available Not Available Not Available Flonase 50 mcg/actua tion nasal spray,desiree pension [place] 2 sprays every day by intranas al route in the evening. 12/24 completed Not Available Not Available Not Available clopidogr el 75 mg tablet TAKE 1 TABLET BY MOUTH EVERY DAY active Not Available Not Available No t Available ciproflox acin 250 mg tablet 05/07 completed Not Available Not Available Not Available ciproflox acin 500 mg tablet TAKE 1 TABLET BY MOUTH TWICE DAILY FOR 7 DAYS 03/04 completed Not Available Not Available Not Available tramadol 50 mg tablet TAKE 1 TABLET BY MOUTH EVERY 12 HOURS NEEDED FOR PAIN 01/10 completed Not Available Not Available Not Available triamcino lone acetonide 0.1 % topical cream APPLY A THIN LATER TOPICALL Y AA ON BOTH FEET BID active Not Available Not Available No t Available amoxicill in 500 mg tablet TAKE 1 TABLET BY MOUTH EVERY 12 HOURS FOR 10 DAYS 07/29 completed Not Available Not Available Not Available acyclovir 800 mg tablet Take 1 tablet 5 times a day by oral route for 7 days. active Not Available Not Available No t Available glimepiri de 1 mg tablet TAKE 1/2 TABLET BY MOUTH EVERY DAY active Not Available Not Available No t Available oxycodone -acetamin ophen 5 mg-325 mg tablet 06/13 completed Not Available Not Available Not Available alprazola m 0.25 mg tablet TAKE 1 TABLET BY MOUTH TWICE DAILY NEEDED active Not Available Not Available No t Available benzonata te 100 mg capsule TK 2 CS PO TID 12/24 completed Not Available Not Available Not Available cephalexi n 500 mg capsule TAKE 1 CAPSULE BY MOUTH THREE TIMES DAILY FOR 5 DAYS 02/18 completed Not Available Not Available Not Available pantopraz ole 40 mg tablet,de layed release TAKE 1 TABLET BY MOUTH EVERY MORNING active Not Available Not Available No t Available lisinopri l 10 mg tablet TK 1 T PO D 12/23 completed Not Available Not Available Not Available omeprazol e 20 mg capsule,d elayed release TAKE 1 CAPSULE BY MOUTH EVERY MORNING active Not Available Not Available No t Available mont[address] 10 mg tablet TK 1 T PO QD 03/04 completed Not Available Not Available Not Available lisinopri l 5 mg tablet TK 1 T PO D 02/09 completed stopped by cardio Not Available Not Available Not Available furosemid e 20 mg tablet TAKE 1 TABLET BY MOUTH EVERY DAY NEEDED FOR SWELLING active Not Available Not Available No t Available Levaquin 500 mg tablet Take 1 tablet every 24 hours by oral route for 10 days. 05/28 completed Not Available Not Available Not Available ergocalci ferol (vitamin D2) 1,250 mcg (50,000 unit) capsule TAKE 1 CAPSULE BY MOUTH WEEKLY active Not Available Not Available No t Available levofloxa karina 750 mg tablet 05/07 completed Not Available Not Available Not Available albuterol sulfate HFA 90 mcg/actua tion aerosol inhaler INHALE 2 PUFFS BY MOUTH EVERY 4 HOURS active Not Available Not Available No t Available ketoconaz ole 2 % topical cream NEMESIO EXT AA QD IN THE MORNING active Not Available Not Available No t Available lisinopri l 40 mg tablet TAKE 1 TABLET BY MOUTH EVERY DAY active Not Available Not Available No t Available cefdinir 300 mg capsule TAKE 1 CAPSULE BY MOUTH EVERY 12 HOURS FOR 7 DAYS 01/10 completed Not Available Not Available Not Available doxycycli ne hyclate 100 mg tablet TAKE 1 TABLET BY MOUTH TWICE DAILY FOR 7 DAYS 01/10 completed Not Available Not Available Not Available rosuvasta tin 40 mg tablet TAKE 1 TABLET BY MOUTH DAILY active Not Available Not Available No t Available Crestor 10 mg tablet TK 1 T PO QD 05/07 completed Not Available Not Available Not Available Crestor 20 mg tablet 05/07 completed Not Available Not Available Not Available Januvia 50 mg tablet Take 1 tablet every day by oral route. 03/12 completed Not Available Not Available Not Available Januvia 100 mg tablet Take 1 tablet every day by oral route. active Not Available Not Available No t Available Bystolic 5 mg tablet one half tablet daily 05/28 completed Not Available Not Available Not Available nebivolol 2.5 mg tablet TAKE 1 TABLET BY MOUTH DAILY 01/10 completed Not Available Not Available Not Available nebivolol 10 mg tablet TAKE 1 TABLET BY MOUTH DAILY active Not Available Not Available No t Available risedrona te 150 mg tablet Take 1 tablet every month by oral route. 08/07 completed Not Available Not Available Not Available Contour Next Test Strips USE TO CHECK BLOOD SUGAR TWICE DAILY active Not Available Not Available No t Available PreviDent 5000 Booster Plus 1.1 % dental paste active Not Available Not Available Not Available Farxiga 5 mg tablet TK 1 T PO QD active Not Available Not Available No t Available Jardiance 25 mg tablet 03/27 completed Not Available Not Available Not Available OneTouch Ultra Blue Test Strip TEST THREE TIMES DAILY active Not Available Not Available No t Available OneTouch Delica Plus Lancet 33 gauge USE TO TEST TWICE DAILY active Not Available Not Available No t Available Vitals Date Recorded Body height Body mass index (BMI) Body weight Body temperature Heart rate Oxygen saturation Oxygen saturation in Arterial blood by Pulse oximetry Systolic blood pressure Diastolic blood pressure Provider Name and Address Organization Details Last Updated DateTime 4 175.26 cm 22.7 kg/m2 18166.2 2 g 97.5 [degF] 70 /min 98 % 98 % 174 mm[Hg] 89 mm[Hg] Nat Su MA [employer] 4 10:15:23 Date Recorded Body height Body mass index (BMI) Body weight Heart rate Oxygen saturation Oxygen saturation in Arterial blood by Pulse oximetry Systolic blood pressure Diastolic blood pressure Provider Name and Address Organization Details Last Updated DateTime 5 175.26 cm 21 kg/m2 10732.1 2 g 67 /min 97 % 97 % 110 mm[Hg] 56 mm[Hg] IGNACIO Rivero [place] [employer] [facility] [employer] 5 14:01:20 Date Recorded Body height Body mass index (BMI) Body weight Heart rate Oxygen saturation Oxygen saturation in Arterial blood by Pulse oximetry Systolic blood pressure Diastolic blood pressure Provider Name and Address Organization Details Last Updated DateTime 5 175.26 cm 20.7 kg/m2 52039.9 3 g 66 /min 98 % 98 % 112 mm[Hg] 54 mm[Hg] Maddison Harvey [facility] [employer] [facility] 5 12:12:53 Date Recorded Body height Body mass index (BMI) Body weight Body temperature Heart rate Systolic blood pressure Diastolic blood pressure Provider Name and Address Organization Details Last Updated DateTime 3 175.26 cm 22.3 kg/m2 02017.4 5 g 97.8 [degF] 60 /min 130 mm[Hg] 70 mm[Hg] Mayra Hurst [facility] [employer] [facility] 3 11:14:16 Date Recorded Body height Body mass index (BMI) Body weight Body temperature Heart rate Systolic blood pressure Diastolic blood pressure Provider Name and Address Organization Details Last Updated DateTime 3 175.26 cm 22.4 kg/m2 29093.0 4 g 98.1 [degF] 70 /min 120 mm[Hg] 72 mm[Hg] Eunice webster RN [facility] [employer] [facility] 3 11:49:20 Social History Question Answer Notes LastModified by Organizat ion Details LastModified Time Tobacco Smoking Status Never Smoker Not Available [facility] 01/20/2023 05:12:22 Do You Have An Advance Directive? No MIGRATION.[id number] [id number] Information not available 01/20/2023 Are You Blind Or Do You Have Difficulty Seeing? No MIGRATION.72058 43569 Information not available 01/20/2023 What Is Your Level Of Caffeine Consumption? Moderate MIGRATION.08715 12434 Information not available 01/20/2023 How Much Tobacco Do You Chew? None MIGRATION.70790 40493 Information not available 01/20/2023 In The 14 Days Before Symptom Onset, Have You Had Close Contact With A Laboratory-confir med COVID-19 While That Case Was Ill? No MIGRATION.97260 78003 Information not available 01/20/2023 In The 14 Days Before Symptom Onset, Have You Had Close Contact With A Person Who Is Under Investigation For COVID-19 While That Person Was Ill? No MIGRATION.42282 47983 Information not available 01/20/2023 Are You Deaf Or Do You Have Serious Difficulty Hearing? No MIGRATION.61696 30438 Information not available 01/20/2023 What Type Of Diet Are You Following? DIABETIC MIGRATION.36438 55004 Information not available 01/20/2023 Which Illicit Or Recreational Drugs Have You Used? None MIGRATION.46463 53197 Information not available 01/20/2023 What Is The Highest Grade Or Level Of School You Have Completed Or The Highest Degree You Have Received? [id number] MIGRATION.28476 34133 Information not available 01/20/2023 Have There Been Any Changes To Your Family Or Social Situation? No MIGRATION.72679 33730 Information not available 01/20/2023 What Is The Fluoride Status Of Your Home? Unknown MIGRATION.86481 89004 Information not available 01/20/2023 Are There Any Guns Present In Your Home? No MIGRATION.96849 57436 Information not available 01/20/2023 Do You Use Insect Repellent Routinely? No MIGRATION.09627 03441 Information not available 01/20/2023 Where Do You Live? [place]House MIGRATION.26632 39020 Information not available 01/20/2023 Do You Have A Medical Power Of Drilling Rig Operator? No MIGRATION.95837 49442 Information not available 01/20/2023 What Was The Date Of Your Most Recent Tobacco Screening? 07/29/2023 Information not available 07/29/2023 Do You Have Any Pets? No MIGRATION.77837 45190 Information not available 01/20/2023 What Is Your Relationship Status? MIGRATION.06259 27315 Information not available 01/20/2023 Do You Use Your Seat Belt Or Car Seat Routinely? Yes MIGRATION.48003 12873 Information not available 01/20/2023 Do You Have Smoke And Carbon Monoxide Detectors In Your Home? Yes MIGRATION.96419 34753 Information not available 01/20/2023 Are You Passively Exposed To Smoke? No MIGRATION.56273 43146 Information not available 01/20/2023 Are There Any Smokers In Your House? No MIGRATION.43235 57025 Information not available 01/20/2023 What Types Of Sporting Activities Do You Participate In? None MIGRATION.90114 92611 Information not available 01/20/2023 Do You Use Sunscreen Routinely? Yes MIGRATION.78215 60699 Information not available 01/20/2023 Has Tobacco Cessation Counseling Been Provided? No MIGRATION.10339 38445 Information not available 01/20/2023 How Many Years Have You Smoked Tobacco? 0 MIGRATION.08087 53684 Information not available 01/20/2023 Have You Recently Traveled Abroad? No MIGRATION.60969 10544 Information not available 01/20/2023 Do You Have Difficulty Walking Or Climbing Stairs? No MIGRATION.68782 79270 Information not available 01/20/2023 Do You Have Any Dietary Restrictions? No MIGRATION.93670 03735 Information not available 01/20/2023 Sex: Female Functional Status Question Answer Note LastModified by [employer] ion Details LastModified Time Do you or have you ever used smokeless tobacco? Never used smokeless tobacco MIGRATION.963297 5168 Information not available 01/20/2023 Are you currently employed? Yes Information not available 07/29/2023 Do you have transportation difficulties? No MIGRATION.951059 2359 Information not available 01/20/2023 Are you able to care for yourself? Yes MIGRATION.963153 0038 Information not available 01/20/2023 Do you have difficulty dressing or bathing? No MIGRATION.253974 5371 Information not available 01/20/2023 Do you or have you ever used e-cigarettes or vape? Never used electronic cigarettes MIGRATION.819313 1066 Information not available 01/20/2023 What is your exercise level? Occasional MIGRATION.724193 2107 Information not available 01/20/2023 Do you use any illicit or recreational drugs? No MIGRATION.888423 1469 Information not available 01/20/2023 Do you or have you ever used any other forms of tobacco or nicotine? No MIGRATION.024241 4128 Information not available 01/20/2023 What is your level of alcohol consumption? None MIGRATION.939447 0125 Information not available 01/20/2023 Are you able to walk? YESWOREST MIGRATION.327018 8609 Information not available 01/20/2023 Do you have difficulty doing errands alone? 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 [id number] MIGRATION.02014366 26 Information not available 01/20/2023 Do you have difficulty concentrating, remembering or making decisions? No MIGRATION.51033051 26 Information not available 01/20/2023 Family History Relationship Description Onset Age of this Age Resolved Age Notes LastModified by Organization Details LastModified Time Mother Diabetes mellitus MIGRATION.998 [id number] Not available 01/20/2023 05:14:06 Mother Heart disease MIGRATION.566 [id number] Not available 01/20/2023 05:14:06 Mother Renal failure syndrome deceas ed [email or web address] Not available 01/10/2025 13:43:38 Father Diabetes mellitus MIGRATION.394 [id number] Not available 01/20/2023 05:14:06 Father Heart disease MIGRATION.496 [id number] Not available 01/20/2023 05:14:06 Father History of carcinoma 72 rmacios Not available 2024 13:43:38 Medical History Condition Response NERVE DISEASE N BLINDNESS N RHEUMATIC FEVER N KIDNEY STONES N BLADDER PROBLEMS N MRSA N OTHER # 1 N POLIO N LUNG DISEASE/DISORDER N RADIATION / CHEMOTHERAPY N COPD N Other # 2 N BLOOD DISEASES N EAR OR HEARING PROBLEMS N MUMPS N BOWEL PROBLEMS N DEPRESSION (INCLUDING POST ) N STROKE/TIA Y ULCERS N BENIGN PROSTATIC HYPERPLASIA N MEASLES N MYOCARDIAL INFARCTION N OBESITY N GERD/NAUSEA N ANEURYSM N URINARY/BLADDER/KIDNEY PROBLEMS Y CORONARY ARTERY DISEASE (CAD) N ADDICTION CONCERNS N Impotence N ENDOMETRIOSIS N USE OF BLOOD THINNERS N SKIN PROBLEMS N GASTROINTESTINAL DISORDER N PERIPHERAL VASCULAR DISEASE N MUSCLE,JOINT OR BONE PROBLEMS N GASTROINTESTINAL BLEEDING N BLOOD CLOTS N ASTHMA N CATARACTS N ERECTILE DYSFUNCTION N VARICOSITIES N GI PROBLEMS N Low Testosterone N INFERTILITY N AIDS/HIV N CHEMOTHERAPY / RADIATION N LIVER DISEASE N MALE HYPOGONADISM N HYPERTENSION Y Deficiency Y TOURETTE'S N ANXIETY DISORDER Y BLOOD TRANSFUSION N ANEMIA/BLOOD DISORDER N CHRONIC EAR INFECTIONS N BRONCHITIS Y TUBERCULOSIS N GLAUCOMA N FOOT PROBLEM N DIVERTICULITIS N SLEEP APNEA N CHICKENPOX N INFECTIOUS DISEASE N PROSTATE N HEART ARRHYTHMIA N INSOMNIA N HIGH CHOLESTEROL / HYPERLIPIDEMIA Y EYE PROBLEMS N HYPERTHYROIDISM N EDEMA N CHRONIC PAIN SYNDROME N HYPOTHYROIDISM N CONSTIPATION N CAROTID BLOCKAGE N BACK / NECK PROBLEMS N HAVE YOU BEEN HOSPITALIZED OR SEEN IN [facility] ER IN THE PAST YEAR ? N ATHEROSCLEROSIS N BREAST PROBLEMS N DIALYSIS N ECZEMA N OSTEOPOROSIS N ARTHRITIS N APPENDICITIS N DIABETES, TYPE Y BAD TEETH N ENT N HEARTBURN / REFLUX N AUTISM SPECTRUM DISORDER (ASD) N HEPATITIS / LIVER DISEASE N GOUT N SLEEP DISORDER N ALZHEIMER'S DISEASE N Brain Problems N DEMENTIA N HERPES N SEIZURES/EPILEPSY N HEADACHES/MIGRAINES N VASCULAR DISEASE N PACEMAKER N Blood Disorder N DIZZINESS N HEART DISEASE/HEART PROBLEMS N KIDNEY DISEASE N MULTIPLE SCLEROSIS N CANCER: SPECIFY N CARDIAC ARRHYTHMIA N ATRIAL FIBRILLATION N Gall Stones N PULMONARY EMBOLISM N AUTOIMMUNE DISEASE N Gynecological HistoryNo gynecological history recorded. Obstetrics History GPAL:G 0 P 0 0 0 0 Immunizations Vaccine Type Date Status Note Provider Nam e and Address Organization Details Recorded Time Influenza, high-dose, quadrivalent, PF 09/08/2022 completed Not Available [facility] 13:13:31 Influenza, high-dose, quadrivalent, PF 08/23/2020 completed Not Available [facility] 13:13:31 Influenza, high-dose, trivalent, PF 09/26/2018 completed Not Available [facility] 2023 13:13:31 Influenza, high-dose, trivalent, PF 09/03/2017 completed Not Available [facility] 2023 13:13:31 Influenza, split virus, trivalent, PF 09/18/2014 completed Not Available [facility] 2023 13:13:32 Past Encounters Encounter ID Performer Location Encounter Start Date Encounter Closed Date Diagnosis/Indication Diagnosis SNOMED-CT Code Diagnosis ICD10 Code Diagnosis Note [id number] Toby Vela MD [facility] Internal Med [facility] [address] [facility] [place], [facility] [address] [place] [address] 03/25/2021 00:00:00 03/25/2021 22:50:05 [id number] Toby Vela MD [facility] Internal Med [facility] [address] [facility] [place], [facility] [address] [place] [address] 07/29/2021 00:00:00 08/30/2021 10:35:44 [id number] Toby Vela MD [facility] Internal Med [facility] [address] [facility] [address] [place] [address] 12/22/2021 00:00:00 12/22/2021 21:23:44 [id number] Toby Vela MD [facility] Internal Med [facility] [address] [facility] [address] [place] [address] 02/18/2022 00:00:00 02/18/2022 21:12:37 [id number] Toby Vela MD [facility] Internal Med [place] [facility] [address] [place] [address] y [place] [address] 04/21/2022 00:00:00 05/09/2022 15:39:32 [id number] Toby Vela MD [facility] Internal Med [facility] [address] [place] [address] [place] [address] 09/08/2022 00:00:00 09/13/2022 13:08:00 [id number] Toby Vela MD [facility] Internal Med [place] [address] [place] [address] [place] [address] 03/04/2023 09:51:24 03/04/2023 10:49:46 Gastroesophageal reflux disease 926149588 K21.9 [id number] Emanuel Campos NP [facility] [id number] [place] [address] 03/12/2023 11:41:06 03/12/2023 12:50:46 Abnormal urinalysis 508376468 R82.90 UA today is negative for infection, but trace blood on urine dip. Will send urine for microscopi c evaluation . If positive will trigger hematuria workup. We discussed possible etiologies of hematuria including infection, stones, malignancy , benign tumors, and/ or certain anatomic abnormalit ies. Suprapubic pain 03598322 6 R10.30 dysuria bladder pain present when she is not drinking enough water. Recommende d drinking at least 1.5 L of water/day. we discussed avoiding bladder irritants such as carbonated beverages, caffeine, spicy/ acidic foods, alcohol, and/ or tobacco products. Simple renal cyst 980400 09 N28.1 Simple renal ultrasound seen on CT scan. Will follow-up with renal ultrasound in 6 months to confirm stability [id number] Toby Vela MD [facility] Internal Med [facility] [address] [place] [address] [place] [address] 04/08/2023 10:57:42 04/08/2023 11:27:32 Anxiety 41634911 F41.9 Diabetes mellitus 637495 09 E11.9 Hypertensive disorder 38 799618 I10 [id number] Toby Vela MD [facility] Internal Med [facility] [address] [place] [address] y , [place] [address] 07/29/2023 11:15:19 07/29/2023 12:36:31 Low back pain 941532161 M54.50 Anxiety 93382831 F41.9 Asthma 295063090 J45.90 9 Cardiomyopathy 27403908 I42.9 Diabetes mellitus 703052 09 E11.9 Type 2 vidal betes mellitus without complication 635838724 E11.9 [id number] Toby Vela MD [facility] Internal Med [facility] [address] [address] 12/06/2023 10:00:52 12/06/2023 11:14:10 Diabetes mellitus 59765330 E11.9 Hypertensive disorder 38 215063 I10 Bronchitis 91796312 J40 Anxiety 37224878 F41.9 Cardiomyopathy 03137363 I42.9 Type 2 vidal betes mellitus 34422410 E11.9 [id number] Ibeth Xavier MD [facility] General Surgery [address] [address] 01/10/2025 13:42:48 01/10/2025 15:01:13 Gastro-esophageal reflux disease with esophagitis 068150524 K21.00 [id number] Ibeth Xavier MD [facility] General Surgery [address] [address] 02/21/2025 12:10:24 02/21/2025 12:38:57 Gastro-esophageal reflux disease with esophagitis 462276516 K21.00 Epigastric pain 84499552 R10.13 Altered nenita wel function 28864979 R19.4 TRY LINZESS 145 MCG DAILY 30 MIN BEFORE BREAKFAST Health Concerns Section Related Observation LastModified by Organization Detai ls LastModified Time None Recorded Concern Status LastModified by Organization Details LastModified Time None Recorded Advance Directives Directive N: Payers Encounter Date Sequence Insurance Name Policy Number Policy Hernandes Covered Member ID Hernandes Member ID Guarantor Name 04/08/2023 1 [place] [id number] Yary S Cortner [id number] Yary S Cortner 07/29/2023 1 [place] [id number] Yary S Cortner [id number] Yary S Cortner 07/29/2023 2 [place] Yary S Cortner [id number] Yary S Cortner 12/06/2023 1 [place] [id number] Yary S Cortner [id number] Yary S Cortner 12/06/2023 2 [place] Yary S Cortner [id number] Yary S Cortner 01/10/2025 1 [place] [id number] Yary S Cortner [id number] Yary S Cortner 01/10/2025 2 [place] Yary S Cortner [id number] Yary S Cortner 02/21/2025 1 [place] [id number] Yary S Cortner [id number] Yary S Cortner 02/21/2025 2 [place] Yary S Cortner [id number] Yary S Cortner Notes Date Note Type Note Provider Name and Address Organization Details Recorded Time 04/08/2023 text/html Short interval follow-up Pepcid working well hypertension no headache or dizziness diabetes no polyphagia polydipsia anxiety doing fine Toby Vela MD [address] [place] [address], [facility] [address], [place], [address], [facility] [employer] 04/17/2023 16:26:29 07/29/2023 text/html Pepcid working well hypertension no headache or dizziness diabetes no polyphagia polydipsia anxiety doing fine back bothering her still Toby Vela MD [address], [address], [place], [address], [employer] 08/16/2023 22:45:49 12/06/2023 text/html Pepcid working well hypertension no headache or dizziness diabetes no polyphagia polydipsia anxiety doing fine . She has had a little bit of dry cough for few days with mild wheeze Toby Vela MD [address], [place], [address], [employer] 12/06/2023 14:35:42 01/10/2025 text/html YARY WAS SEEN IN THE OFFICE TODAY FOR EVALUATION OF RECURRENT ESOPHAGITIS . PT HAS DM -2. LAST HBA1C WAS 6.7. PT IS S/P EGD IN AUGUST. SHE HAD A MILD SR , SMALL HIATAL HERNIA . SHE IS S/P ESOPHAGEAL DILATION . THERE WAS CANDIDIASIS IN THE MID ESOPHAGUS. PT WAS RXED FLUCONAZOLE X 7-10 DAYS. X 4 ROUNDS B/C OF RECURRENT SX . PT TAKES OMEPRAZOLE 40 MG /FAMOTIDINE 40 MG . FOR GERD . PT C/O EPIGASTRIC PAIN . Ibeth Xavier MD [address], [place], [address], [employer] [facility] [employer] 01/10/2025 15:48:29 02/21/2025 text/html [facility]. PT C/O ABD PAIN /BLOATING /BMs GRADE 1 ON THE BSS .SHE DENIES PYROSIS. SHJE IS TAKING OMEPRAZOLE 40 MG AND D/C THE FAMOTIDINE. PT REPORTS THAT FLUCONAZOLE RESOLVES HER SX . Ibeth Xavier MD [address], [place], [address], [employer] 02/21/2025 12:41:59 OBGyn Episode No OBEpisode recorded.
== END 2025-04-19 07:36 | disposition home or self-care (01) ==
PROVIDERS: PCP Internal Medicine; Visit Provider Nurse Practitioner Family
DX: R68.81 Early satiety (principal); R63.0 Anorexia
CPT/HCPCS: 78264; A9541

== ENCOUNTER 2025-07-19 14:47 | Outpatient (CLI) | payer BC, MEDICARE, SELFPAY ==
--- OUTSIDE RECORDS SUMMARY | 2025-07-19 14:50 | XMS_ITS | Clinical Summary ---
Author Organization [facility] Address [address] [place] [address] Care Team Providers Care Migration Agent Name Role Phone Davion Vela MD Primary Care Provider [phone] Allergies Active Allergy Reactions Criticality Noted Date Comments Empagliflozin Nausea only Low 04/26/2025 Latex Unknown 04/26/2025 latex Metformin Unknown High 10/01/2015 Tetanus And Diphther. Tox (Pf) Unknown High 10/02 Tetanus Vaccines And Toxoid Unknown 04/26/20 25 Medications albuterol HFA (PROVENTIL HFA,VENTOLIN HFA,PROAIR HFA) 90 mcg/actuation inhaler Inhale 2 puffs Active ALPRAZolam (XANAX) 0.25 mg tablet Take 1 tablet (0.25 mg total) by mouth 2 (two) times a day as needed Active clopidogreL (PLAVIX) 75 mg tablet Take 1 tablet (75 mg total) by mouth daily Active ergocalciferol (VITAMIN D) 50,000 unit capsule TAKE 1 CAPSULE BY MOUTH WEEKLY Active furosemide (LASIX) 20 mg tablet TAKE 1 TABLET BY MOUTH EVERY DAY NEEDED FOR SWELLING Active glimepiride (AMARYL) 1 mg tablet Take 0.5 tablets (0.5 mg total) by mouth daily 03/16/2017 Active lisinopriL (PRINIVIL,ZESTR IL) 40 mg tablet Take 1 tablet (40 mg total) by mouth daily Active nebivoloL (BYSTOLIC) 10 mg tablet Take 1 tablet (10 mg total) by mouth daily 12/28/[address] (PROTONIX) 40 mg EC tablet Take 1 tablet (40 mg total) by mouth every morning Active rosuvastatin (CRESTOR) 40 mg tablet Take 1 tablet (40 mg total) by mouth daily Active Active Problems No known active problems Encounters Date Type Department Care Team Description 05/07/2025 Results Follow-Up [facility] [address] [address] Giles Mahajan MD Hemoglobin A1c, Cortisol 04/26/2025 10:00 AM CDT Lab [address] [address] Type 2 diabetes mellitus without complication, without long-term current use of insulin (HCC); Abnormal cortisol level 04/26/2025 9:30 AM CDT Office Visit [facility] [address] [address] Giles Mahajan MD Abnormal cortisol level (Primary Dx); Type 2 diabetes mellitus without complication, without long-term current use of insulin (HCC) from Last 3 Months Surgical History Surgery Date Site/Laterality Comments GALLBL[facility] SURGERY CARDIAC PACEMAKER PLACEMENT HYSTERECTOMY Medical History Medical History Date Comments Hypertension Arthritis Renal abscess left kidney Acid reflux Asthma Family History Medical History Relation Name Comments Cancer Father Heart disease Father Diabetes Mother Heart disease Mother Relation Name Status Comments Father Mother Social History Tobacco Use Types Packs/Day Years Used Date Smoking Tobacco: Never Smokeless Tobacco: Never Tobacco Cessation:Counseling Given: Not Answered Comments Unknown Sex and Gender Information Value Date Recorded Sex Assigned at Not on file 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 Gender Identity Not on file Sexual Orientation Not on file Obstetrics History Last Filed Vital Signs Vital Sign Reading Time Taken Comments Blood Pressure 132/70 04/26/2025 9:10 AM CDT Pulse 50 04/26/2025 9:10 AM CDT Temperature - - Respiratory Rate 16 04/26/2025 9:10 AM CDT Oxygen Saturation - - Inhaled Oxygen Concentration - - Weight 62.1 kg (137 lb) 04/26/2025 9:10 AM CDT Height 175.3 cm (5' 9) 04/26/2025 9:10 AM CDT Body Mass Index 20.23 04/26/2025 9:10 AM CDT Plan of Treatment Health Maintenance Due Date Last Done Comments Albumin Creatinine Ratio, Urine 1950 Breast Cancer Screening-Mammogram 1950 Colon Cancer Screening-Colonoscopy 1950 Depression Screening 1950 Fall Risk Assessment 1950 Hepatitis C Screening 1950 Osteoporosis Screening-Bone Density Scan 1950 eGFR 1950 Dilated Eye Exam 1950 Foot Exam 1950 Lipid Panel 1950 DTaP/Tdap/Td Vaccine (1 - Tdap) 1961 Hepatitis B Screening 1968 Pneumococcal vaccine 65+ (1 of 2 - PCV) 1969 Zoster Vaccine (1 of 2) 2000 Well Visit 65+ 2015 Covid-19 Vaccine (4 - 2023-2 5 season) 2024 08/20/2021, 08/08/2021, 07/18/2021 Influenza Vaccine (#1) 2025 2, 08/23/2020, 09/26/2018, Additional history exists Hemoglobin A1C 10/26/2025 04/26/2025 Procedures Procedure Name Priority Date/Time Associated Diagnosis Comments CORTISOL Routine 04/26/2025 9:44 AM CDT Abnormal cortisol level HEMOGLOBIN A1C Routine 04/26/2025 9:44 AM CDT Type 2 diabetes mellitus without complication, without long-term current use of insulin (HCC) from Last 3 Months Results * (ABNORMAL) Hemoglobin A1c (04/26/2025 9:44 AM CDT) Hgb A1C 6.1(H) 4.0 - 5.6 % Estimated Average Glucose 128 mg/dL [facility] GUEVARA Comment: The ADA recommends reporting an estimated Average Glucose (eAG) with all Hemoglobin A1c results using the equation derived from a study of 507 normal and diabetic adults. Minority populations were underrepresented and children were not included. (Diabetes Care 31:0659-5708, 2008). The eAG is not equivalent to a fasting glucose. Blood 04/26/2025 9:44 AM CDT 04/26/2025 12:15 PM CDT Giles Stevens MD LAB BLOOD ORDERABLE S Final Result Performing Organization Address [facility] [place] [id number] [address] Department [place] [address] * Cortisol (04/26/2025 9:44 AM CDT) Cortisol 7.8 4.8 - 19.5 mcg/dl Comment: Interpretive Data Normal Range: 4.8 - 19.5 mcg/dL; Evening: Half of morning value. This analyte undergoes marked diurnal variation. Ranges indicated apply to morning specimens. Current interpretive data was last revised 2018. Blood 04/26/2025 9:44 AM CDT 04/26/2025 12:15 PM CDT Giles Stevens MD LAB BLOOD ORDERABLE S Final Result Performing Organization Address [facility] [place] [address] [address] Cano Department [place] [address] from Last 3 Months Insurance MEDICARE [facility] Care Teams Migration Agent Relationship Specialty Start Date End Date Davion Vela MD PCP - General Internal Medicine 04/03/25
--- OUTSIDE RECORDS SUMMARY | 2025-07-19 14:50 | XMS_ITS | Clinical Summary ---
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 Role Phone Unavailable Primary Care Provider Unavailabl e Social History Tobacco Use Types Packs/Day Years Used Date Smoking Tobacco: Never Assessed Comments Unknown Sex and Gender Information Value Date Recorded Sex Assigned at Not on file Legal Sex Female 8:22 AM CDT Gender Identity Not on file Sexual Orientation Not on file Plan of Treatment Health Maintenance Due Date Last Done Comments Colorectal Cancer Screening Colonoscopy (10 Years) 1950 Hepatitis C 1968 DTaP, Tdap and Td Vaccines ( 1 - Tdap) 1969 Mammogram Screening 1990 Pneumococcal Vaccine: 50+ Ye ars (1 of 1 - PCV) 2000 Zoster Vaccines (1 of 2) 2000 Dexa Scan (General) 2015 COVID-19 Vaccine (2023-2 5 season) 2024 RSV Immunization or 60+ Years (1 - 1-dose 75+ series) 2025 Meningococcal B Vaccine Aged Out No l onger eligible based on patient's age to complete this topic Meningococcal Vaccine Aged Out No eleni emery eligible based on patient's age to complete this topic RSV Immunizations Under 20 Months Aged Out No longer eligible based on patient's age to complete this topic Insurance RUST
[2025-07-19 15:18] LABS: Hematocrit 35.4 % (37.0-47.0); Hemoglobin 11.6 g/dL (12.0-15.0); Mean Corpuscular HGB Conc 32.8 g/dl (32-36); Mean Corpuscular Hemoglobin 30.1 pg (26-34); Mean Corpuscular Volume 91.7 fl (80-100); Platelet Count Result 261 k/mm3 (150-375); Red Blood Count 3.86 M/mm3 (4.2-5.4); White Blood Count 7.0 K/mm3 (4.5-10.0)
[2025-07-19 15:37] LABS: Alanine Aminotransferase 12 U/L (6-35); Albumin Level 4.6 g/dL (3.5-5.1); Alkaline Phosphatase 55 U/L (38-126); Anion Gap 7 mmol/L (4-12); Aspartate Amino Transferase 24 U/L (14-36); Bilirubin,Total 0.6 mg/dL (0.2-1.3); Blood Urea Nitrogen 14 mg/dL (7-17); Calcium 9.7 mg/dL (8.4-10.2); Carbon Dioxide 29 mmol/L (22-30); Chloride 104 mmol/L (98-107); Estimated Glomerular Filt Rate > 60; Glucose 122 mg/dL (65-110); Lipase 119 U/L (23-300); Potassium 4.0 mmol/L (3.4-5.0); Sodium 140 mmol/L (137-145); Total Protein 7.2 g/dL (6.3-8.2)
== END 2025-07-19 14:48 | disposition home or self-care (01) ==
PROVIDERS: PCP Internal Medicine; Visit Provider Nurse Practitioner Family
DX: R10.10 Upper abdominal pain, unspecified (principal); K21.9 Gastro-esophageal reflux disease without esophagitis
CPT/HCPCS: 36415; 80048; 80076; 83690; 85027